=== PATIENT | male | born 1940 | race Caucasian/White ===

== ENCOUNTER 2017-08-27 11:15 | Inpatient (IN) ==
--- NOTE | 2017-08-27 12:25 | XRay Report ---
XR chest 2V Indication: Shortness of breath Comparison: 07 May 2017 Findings: The heart and mediastinum are stable in size and configuration. Pacemaker device is unchanged in position. The pulmonary vascularity appears increased. There is patchy bilateral alveolar densities in both lungs slightly greater on the right. No other lung infiltrates, effusions, pneumothorax or other abnormality is demonstrated. Impression: Increased pulmonary vascularity with bilateral patchy pulmonary densities, may indicate congestive heart failure/pneumonia. PROCEDURE INTERPRETED AT [facility] DEPARTMENT OF RADIOLOGY Final Report Signed by: Dr. Zak Gagnon
[2017-08-27 12:48] LABS: Basophils # 0.1 10*3/uL (0.0-0.2); Basophils % 0.6 % (0.0-0.8); Eosinophils # 0.4 10*3/uL (0.0-0.87); Eosinophils % 3.3 % (0.00-10.9); Hematocrit 40.9 VOL% (42.0-52.0); Immature Granulocytes % 0.8 %; Immature Granulocytes Absolute 0.08 #; Lymphocytes % 8.9 % (21.2-54.2); Mean Corpuscular HGB Conc 34.2 GM/DL (32-36); Mean Corpuscular Hemoglobin 31 PG (27-34); Mean Corpuscular Volume 89.7 FL (87-102); Mean Platelet Volume 9.5 FL (9.6-12.0); Monocytes # 0.7 10*3/uL (0.11-0.8); Monocytes % 6.4 % (1.7-12.7); Neutrophils # 8.5 10*3/uL (1.4-7.4); Platelet Count 332 T/CUMM (130-400); Red Blood Count 4.56 MC/CUMM (3.8-5.5); Red Cell Distribution Width 12.9 % (9.3-17.3); White Blood Count 10.6 T/CUMM (4-12)
[2017-08-27] MEDS ORDERED: LEVOFLOXACIN INJ 750 MG in PREMIX 1 EACH IV STA (12:52)
[2017-08-27] MEDS ORDERED: MORPHINE 2 MG/1 ML SYRINGE IV PRN (13:02)
[2017-08-27] MEDS ORDERED: ACETAMINOPHEN 325 MG TABLET PO PRN (13:02)
[2017-08-27] MEDS ORDERED: ONDANSETRON 4 MG/2 ML VIAL IV PRN (13:02)
[2017-08-27] MEDS ORDERED: ALBUTEROL 2.5 MG/3 ML NEB RESP TX PRN (13:05)
--- NOTE | 2017-08-27 13:13 | Emergency Department Note ---
IDaniel Gwan, am scribing for, and in the presence of, Edy Curran MD 12 :03. Magdy Bliss Doug C, MD, personally performed the services described in this documentation, ascribed by Karla Sanchez in my presence, and it is both accurate and complete 241 . Arrival - Arrival Chief Complaint: Shortness of Breath Stated Complaint: SOB, LOW OXYGEN LEVEL ED Nursing Triage Note: PT C/O SHORTNESS OF BREATH SINCE TUESDAY. PT SAW DR PLASENCIA TUESDAY AND PUT ON ANTIBIOTICS AND TOLD HE HAD FLUID ON LUNGS. REPORTS OXYGEN SAT 88% AT HOME. TEMP 100.3 THIS AM Mode of Arrival: Ambulatory Limitations: No Limitations Source: Patient, Significant other ( ), Old Records Reviewed, RN Notes Reviewed Time Seen by Provider: 08/27/17 11:52 - History of Present Illness HPI Narrative: Patient 76-year-old white male presents emergency room complaining of persistent shortness of breath for the past 2 weeks. Patient states she has had a productive cough and low-grade fever throughout the duration of this illness and states his temperature willem as high as 101. Saw his regular physician was placed on antibiotics without any apparent benefit. He denies any chest pain, neck pain, back or shoulder discomfort. He has not had any hemoptysis or wheezing. Patient does have a history of atrial fibrillation states he recently stopped amiodarone. Onset (ago): week(s) Consistency: constant Severity: moderate Allergies/Adverse Reactions: Allergies Allergy/AdvReac Type Severity Reaction Status Date / Time diazepam AdvReac Intermediate Hallucinati Verified 08/27/17 11:24 ng Home Medications: Home Medications Medication Instructions Recorded Confirmed Type Cyanocobalamin (Vitamin B-12) 2,500 mcg SL BEDTIME 10/09/15 08/27/17 History [Vitamin B-12] Furosemide 20 mg PO DAILY 10/09/15 08/27/17 History [place]-3S/Dha/Epa/Fish Oil [Fish 2 each PO DAILY 10/09/15 08/27/17 History Oil 1,200 mg Softgel] diphenhydrAMINE CAP [Benadryl Cap] 25 mg PO BEDTIME 10/09/15 08/27/17 History Amiodarone Tab [Cordarone Tab] 200 mg PO DAILY 02/15/17 08/27/17 History Escitalopram [Lexapro] 10 mg PO BEDTIME 02/15/17 08/27/17 History Losartan Potassium 100 mg PO DAILY 02/15/17 08/27/17 History Potassium Gluconate 2 tablet PO DAILY 02/15/17 08/27/17 History Rivaroxaban [Xarelto] 20 mg PO BEDTIME 02/15/17 08/27/17 History Terazosin HCl 2 mg PO BEDTIME 02/15/17 08/27/17 History Mv-Min/FA/Vit K/Lycop/Lut/Zeax 1 each PO DAILY 04/09/17 08/27/17 History [Ocuvite Eye + Multi Tablet] Ascorbic Acid [Vitamin C] 1,000 mg PO DAILY 05/06/17 08/27/17 History Cefdinir [Cefdinir] 300 mg PO [id number] 08/27/17 08/27/17 History Tiotropium Cal[place] [Spiriva 2 puffs INH BEDTIME 08/27/17 08/27/17 History Respimat] Review of System - Review of System 12 point system: reviewed and no additional remarkable complaints except as stated - Review of System Constitutional: Present: as per HPI, fever. Absent: chills Respiratory: Present: as per HPI, cough (with green sputum ), other (shortness of breathe ) Cardiovascular: Absent: chest pain, palpitations Medical,Surgical,& Family Hx - Medical History Cardio: History of: Cardiac Dysrhythmia (AFIB), Hypertension Neurology: History of: Seizures Genitourinary: History of: Kidney Stones, Prostate Problems (BPH) - Family History Family History: Reports;: Family Heart Disease - Social History Smoking Status: Unknown if ever smoked Frequency of Alcohol Use: None Type of Drug Use: None Exam Vital Signs: Vital Signs Temperature 97.8 F 08/27/17 12:00 Pulse Rate 82 08/27/17 12:00 Respiratory Rate 21 08/27/17 12:00 Blood Pressure 147/106 08/27/17 12:00 O2 Sat by Pulse Oximetry 90 L 08/27/17 12:00 - General General appearance: alert, in no apparent distress - Head Head exam: Present: atraumatic, normocephalic - Eye Eye exam: Present: normal appearance, PERRL, EOMI - ENT ENT exam: Present: normal oropharynx, mucous membranes moist, TM's normal bilaterally, normal external ear exam - Neck Neck exam: Present: full ROM, trachea midline. Absent: tenderness - Chest Chest inspection: Present: symmetric chest wall rise. Absent: tenderness - Respiratory Respiratory exam: Present: normal lung sounds bilaterally. Absent: respiratory distress - Cardiovascular Cardiovascular exam: Present: regular rate, irregular rhythm - Abdominal Exam Abdominal exam: Present: soft, normal bowel sounds. Absent: distention, tenderness - Extremities Exam Extremities exam: Present: full ROM. Absent: tenderness - Back Exam Back exam: Present: full ROM. Absent: tenderness - Neurological Exam Neurological exam: Present: alert, oriented X3, CN II-XII intact. Absent: motor sensory deficit - Psychiatric Psychiatric exam: Present: normal affect, normal mood - Skin Skin exam: Present: warm, dry, intact, normal color Course Course Narrative: Patient's radiographic and laboratory findings were discussed with him and his . It is my opinion that he needed to be admitted to the hospital and he is agreeable to this. Dr. Cristhian Montejo will be consulted. Results - Labs CBC & BMP: 08/27/17 12:33 Lab Results: I have reviewed the patients labs Labs: Laboratory Tests 08/27/17 12:33 WBC 10.6 RBC 4.56 Hgb 14.0 Hct 40.9 L Plt Count 332 MPV 9.5 L Neut % (Auto) 80.0 H Lymph % (Auto) 8.9 L Neut # (Auto) 8.5 H Lymph # (Auto) 1.0 L - EKG EKG results: interpreted by ERMD - Impressions 83 bpm with paced rhythm - Diagnostic Findings Procedure: Chest x-ray: report reviewed by me (Increased pulmonary vascularity with bilateral patchy pulmonary densities, may indicate conagestive heart failure/pneumonia.) Disposition Clinical Impression: Interstitial pneumonia Case discussed with: patient Disposition: Still a Patient Condition: Guarded Time of Disposition: 13:12
[2017-08-27 13:18] LABS: Alanine Aminotransferase 23 U/L (16-61); Albumin 2.8 G/DL (3.4-5.0); Alkaline Phosphatase 95 U/L (45-117); Aspartate Amino Transferase 14 U/L (0-37); Blood Urea Nitrogen 12 MG/DL (7-18); Calcium 8.9 MG/DL (8.5-10.1); Glucose 82 MG/DL (74-106); Osmolality,Calculated 275.5 MOS/KG (273-304); Potassium 3.8 MMOL/L (3.5-5.1); Sodium 139 MMOL/L (136-145); Total Protein 6.8 G/DL (6.4-8.3); Troponin I Only < 0.015 NG/ML (0.00-0.045)
[2017-08-27] MEDS ORDERED: ENOXAPARIN 40 MG/0.4 ML SYRINGE SUBCUT SCH (13:30)
[2017-08-27] MEDS ORDERED: LEVOFLOXACIN INJ 150 ML IV ONE (13:41)
[2017-08-27 14:07] LABS: Apearance,Urine CLEAR (Clear); Bilirubin,Urine Negative (Negative); Blood, Urine Negative (Negative); Glucose,Urine (UA) Negative (Negative); Ketones,Urine Negative (Negative); Nitrite,Urine Negative (Negative); Protein,Urine Negative; Urine Color Straw (Yellow); Urine Specific Gravity 1.002 (1.001-1.035); Urine Urobilinogen < 2.0 EU/DL (0.2-1.0); WBC,Urine <1 /HPF (0-6)
[2017-08-27] MEDS ORDERED: IPRATROPIUM 500 MCG/2.5 ML NEB RESP TX SCH (15:00)
[2017-08-27] MEDS: methylPREDNISolone SOD SUC 40 MG/1 ML VIAL IV SCH (15:24)
[2017-08-27] MEDS: SODIUM CHLORIDE 0.45% 1,000 ML IV SCH (15:24)
[2017-08-27] MEDS: ALBUTEROL 2.5 MG/3 ML NEB RESP TX SCH (19:34)
[2017-08-27] MEDS: CYANOCOBALAMIN 500 MCG TABLET PO SCH (21:04)
[2017-08-27] MEDS: ESCITALOPRAM 10 MG TABLET PO SCH (21:04)
[2017-08-27] MEDS: diphenhydrAMINE CAP 25 MG CAPSULE PO SCH (21:04)
[2017-08-27] MEDS: DOCUSATE SODIUM 100 MG CAPSULE PO SCH (21:04)
[2017-08-27] MEDS: TERAZOSIN 2 MG CAPSULE PO SCH (21:05)
[2017-08-28] MEDS: methylPREDNISolone SOD SUC 40 MG/1 ML VIAL IV SCH ×4 (00:02→22:44)
[2017-08-28] MEDS: ALBUTEROL 2.5 MG/3 ML NEB RESP TX SCH ×4 (00:41→19:28)
[2017-08-28 06:44] LABS: Basophils % 0.2 % (0.0-0.8); Hematocrit 38.9 VOL% (42.0-52.0); Hemoglobin 13.2 GM/DL (14.0-18.0); Immature Granulocytes Absolute 0.11 #; Lymphocytes # 0.7 10*3/uL (1.4-4.0); Lymphocytes % 5.9 % (21.2-54.2); Mean Corpuscular HGB Conc 33.9 GM/DL (32-36); Mean Corpuscular Hemoglobin 31 PG (27-34); Monocytes # 0.1 10*3/uL (0.11-0.8); Monocytes % 0.6 % (1.7-12.7); Neutrophils # 10.1 10*3/uL (1.4-7.4); Neutrophils % 92.3 % (38.7-73.9); Platelet Count 341 T/CUMM (130-400); Red Blood Count 4.32 MC/CUMM (3.8-5.5); Red Cell Distribution Width 12.6 % (9.3-17.3)
[2017-08-28 07:18] LABS: Osmolality,Calculated 286.1 MOS/KG (273-304)
[2017-08-28 07:42] LABS: Band Neutrophils 2 % (0-10); Burr Cells Slight; Hypochromasia Slight; Lymphocytes 2 % (20-55); Platelet Estimate Adequate; Segmented Neutrophils 92 % (50-85); Total Cells Counted 100
--- NOTE | 2017-08-28 07:42 | Family Practice History&Phys ---
Assessment and Plan (1) Interstitial pneumonia Status: Acute Assessment and plan: 08/28/2017: Patient was placed on IV antibiotic therapy, bronchodilator therapy and steroids. Dr. Cristhian Mcnair has been consulted. His amiodarone has been halted. Current Visit: Yes History of Present Illness Chief complaint: Shortness of breath History of present illness: Mr. Bowers is a 76 year old male Patient 76-year-old white male presented emergency room day for admission with increasing shortness of breath. Patient states it has been going on for several weeks and been seen in the office early last week and advised to come in the hospital which he refused. He has been on antibiotic therapy but states she is just not improving. He has had a low-grade fever associated with this. He is also had some sputum production. Chest x-ray in the emergency room showed diffuse interstitial infiltrates bilaterally suspicious for amiodarone toxicity versus an atypical pneumonia. Patient was admitted for further evaluation. Patient was noted to be hypoxic in the emergency room requiring 4 L of oxygen to maintain O2 sat of 90%. Patient denies any chest pain associated with this except when he coughs. He is not having neck, shoulder or arm discomfort. Dr. Cristhian Montejo has been consulted. Home Medications Medication Instructions Recorded Confirmed Type Furosemide 20 mg PO DAILY 10/09/15 08/27/17 History Amiodarone Tab [Cordarone Tab] 200 mg PO DAILY 02/15/17 08/27/17 History Escitalopram [Lexapro] 10 mg PO BEDTIME 02/15/17 08/27/17 History Losartan Potassium 100 mg PO DAILY 02/15/17 08/27/17 History Rivaroxaban [Xarelto] 20 mg PO BEDTIME 02/15/17 08/27/17 History Terazosin HCl 2 mg PO BEDTIME 02/15/17 08/27/17 History Cefdinir [Cefdinir] 300 mg PO [id number] 08/27/17 08/27/17 History Tiotropium [place] [Spiriva 2 puffs INH BEDTIME 08/27/17 08/27/17 History Respimat] Allergies Allergy/AdvReac Type Severity Reaction Status Date / Time diazepam AdvReac Intermediate Hallucinati Verified 08/27/17 11:24 ng - Constitutional Constitutional: Present: fatigue, fever(s), weakness. Absent: chills - EENT Eyes: Absent: blurry vision, loss of vision Ears: Absent: decreased hearing, ear pain Nose, mouth and throat: Absent: hoarseness, nasal congestion, sinus pressure, sore throat - Cardiovascular Cardiovascular: Present: dyspnea, dyspnea on exertion. Absent: chest pain at rest, orthopnea, palpitations, PND - Respiratory Respiratory: Present: as per HPI, cough, dyspnea, dyspnea on exertion, wheezing - Gastrointestinal Gastrointestinal: Absent: abdominal pain, diarrhea, dyspepsia, dysphagia, nausea , vomiting - Genitourinary Genitourinary: Absent: dysuria, hematuria, urinary frequency - Musculoskeletal Musculoskeletal: Absent: arthralgias, back pain, joint swelling - Neurological Neurological: Absent: confusion, focal weakness, numbness, paresthesias - Psychiatric Psychiatric: Absent: anxiety, depression - Endocrine Endocrine: Present: fatigue. Absent: polydipsia, polyphagia - Hematologic/Lymphatic Hematologic/Lymphatic: Absent: easy bleeding, easy bruising Medical,Surgical,& Family Hx - Medical History Cardio: History of: Cardiac Dysrhythmia (AFIB), Hypertension Neurology: History of: Seizures Genitourinary: History of: Kidney Stones, Prostate Problems (BPH) - Surgical History Surgical History: noncontributory - Family History Family History: Reports;: Family Heart Disease - Social History Smoking Status: Unknown if ever smoked Frequency of Alcohol Use: None Type of Drug Use: None Exam - Constitutional Vitals: Period Temp Pulse Resp BP Sys/Leone Pulse Ox Last 24 Hr 97.8 F-98.5 F 66-106 16-23 90-151/63-106 87-99 Exam: General: Objective patient is a well-developed white male who is dyspneic at rest. Patient states he feels much more comfortable since starting the oxygen. He is able to give an excellent history HEENT: Pupils equal and reactive to light. Patent nares and airway Neck: No meningismus, adenopathy, thyromegaly. There are no auscultated carotid bruits. Cardiovascular: Regular rhythm. No murmurs or gallops Chest: Patient has scattered rales and rhonchi bilaterally. He is noted to have scattered wheeze on expiration. Abdomen: Soft nontender to palpation No masses, rebound, guarding or tenderness. Neuro: Cranial nerves intact and DTRs and strength symmetric in all extremities. Dermatologic: No evidence of abnormal lesions or masses. There is no unusual rash. Musculoskeletal: There is no joint swelling or tenderness or deformity. Extremities: There is no calf swelling or tenderness. Results - Labs CBC & BMP: 08/28/17 05:12 08/28/17 05:12 Lab Results: I have reviewed the past 24 hour labs - Diagnostic Findings Procedure: Chest x-ray: report reviewed by me (Bilateral interstitial infiltrates)
[2017-08-28] MEDS: DOCUSATE SODIUM 100 MG CAPSULE PO SCH ×2 (08:44→20:54)
[2017-08-28] MEDS: RIVAROXABAN 20 MG TABLET PO SCH (08:44)
[2017-08-28] MEDS: LOSARTAN 50 MG TABLET PO SCH (08:45)
[2017-08-28] MEDS: MULTIVITAMIN (OCUVITE) TABLET PO SCH (08:46)
[2017-08-28] MEDS: OMEGA 3 ACID ETHYL ESTERS 1 GM CAPSULE PO SCH (08:46)
[2017-08-28] MEDS: LEVOFLOXACIN INJ 500 MG in PREMIX 1 EACH IV SCH (08:46)
[2017-08-28] MEDS: POTASSIUM GLUCONATE 500 MG TABLET PO SCH (08:47)
[2017-08-28] MEDS: ASCORBIC ACID 500 MG TABLET PO SCH (08:47)
[2017-08-28] MEDS: PANTOPRAZOLE 40 MG TABLET PO SCH (08:47)
--- NOTE | 2017-08-28 09:17 | XRay Report ---
XR chest 1V portable Indication: Dyspnea Comparison: 27 August 2017 Findings: The heart and mediastinum are stable in size and configuration. The pulmonary vascularity is increased with bilateral increased interstitial lung density similar to previous. Patchy area pulmonary densities are present similar to previous exam. No other lung infiltrates, effusions, pneumothorax or other abnormality is demonstrated. Impression: No significant change. PROCEDURE INTERPRETED AT [facility] DEPARTMENT OF RADIOLOGY Final Report Signed by: Dr. Zak Gagnon
--- NOTE | 2017-08-28 09:49 | Pulmonology Consult Note ---
History of Present Illness Chief complaint: CLEMENS. Bilateral pneumonia. Amiodarone. History of present illness: Mr. Bowers is a 76 year old white male whom I been asked to see in pulmonary consultation for evaluation and treatment. Patient was seen along with his . This patient says he has had some progressive shortness of breath for 3 or 4 months. He says it late in the day he often has a low-grade temperature which is resolved by the next morning. Occasionally has green or yellow sputum which he thinks comes from his sinuses. He says presently his sputum is clear. There is been no hemoptysis. His dyspnea on exertion has some progress. The patient says she is always had some problems with this lungs dating back to severe shortness of breath at age 8 when he was taken peanuts. 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 He said his dad had a diagnosis of COPD but had never smoked in his life. This patient smoked but quit smoking around 1989. He did not have any pulmonary exposure to toxins during his adult working life. 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 The patient says she has always been told that his lungs were small. He however weight about 113 pounds at age 18-21 and is quite a bit bigger than that now so his lungs do look small on x-ray compared to his body size. He said that her around 2015 he had infection is settled in his chest and it was hard to resolve. This patient's chest x-ray shows bilateral 5 lobes scattered areas of alveolar and interstitial infiltrate that appears to be a systemic type of process. I suspect it will inspector returned materials to be due to amiodarone. He has had a history of atrial fib. His amiodarone was stopped several days ago. He is being followed by cardiology. Patient's history does not suggest reflux with aspiration. Allergies. Diazepam. Home medicines. Lasix 20 mg daily. Amiodarone 200 mg daily. Lexapro 10 mg daily. Losartan 100 mg daily. Xarelto 20 mg daily. Terazosin 2 mg daily.cefdinir. Spiriva Respimat. Past history. Atrial fib. High blood pressure. History of seizures. Kidney stones. BPH. A long history of mild hypoxemia. His has lung problems and has O2 sat Peter and the patient says he usually runs a sat 91. He is episodic shortness of breath since she was a boy. Social history. . 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 Some exposure to asbestos a lot of exposure to farm chemicals. 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 Stop smoking around 1989. Family history. His father had COPD but never smoked. There is a family history of heart disease. Chest x-ray 08/27/2017 and 08/28/2017 are nearly identical. Heart is top normal in size. Both hilar areas are normal. Pulmonary arteries in the upper range of normal. Mediastinum is normal. There is a cardiac pacing device over the right upper anterior chest. There are 5 lobe areas of alveolar filling with associated interstitial edema. These are most prominent in the right and left base but are present everywhere. I see no fluid in the fissures and I see no pleural effusions. These changes were not present on x-rays that were done in April 2017. Microbiology. No studies reported. Lab. Creatinine is 1.0 with a BUN of 14. Electrolytes are normal. Liver function tests are normal. Troponin is normal. Natruretic peptide was normal at 70. C-reactive protein was elevated at 9.22. Erythrocyte sedimentation rate was elevated at 92. D-dimer was 0.7. Total protein was 6.8 albumin was low at 2.8 and globulins were up to 4.0. Admit white count was 10,600 with 80 segs 9 lymphs and 6 monocytes. H&H is 14.0/40.9 with normal indices and normal red blood cell distribution width. Platelets are 332,000 with a low MPV of 9.5. Urinalysis is normal. Physical exam. Vital signs. No fever. Highest recorded temperature is 98.5. Psychiatric. Oriented 3. Intelligent. Neurologic. Cranial nerves are grossly intact. Patient moves all 4 extremities. Gait was not tested and sensory exam was not done. Face. Symmetrical. No edema of the lips or tongue. Neck. Symmetrical. No meningismus. Lymphatics. No submandibular cervical supraclavicular or epitrochlear adenopathy. Chest. Slight large airway wheeze and slight prolongation of expiration. I did not hear Velcro rales. Heart. No gallop. I do not hear murmur. Abdomen. Nontender. Bowel sounds are present. and rectal. Deferred Lower extremities. No significant edema. Slight tenderness over the posterior calves. Arterial. Carotids are fair I hear no bruits. Upper extremity pulses are palpable. Lower extremity pulses are nonpalpable. I see no evidence of ischemia. Venous. Neck and upper extremities are normal slight venous stasis over the lower extremities. The remainder the physical exam is negative. Impression. 1. Subacute/acute onset of worsening dyspnea on exertion and is associated with a 5 lobe alveolar/interstitial infiltrate. This could be any number of causes that include infections and hypersensitivity reactions. I suspect this will inspector returned materials to be amiodarone lung. 2. Mild large airway wheezing. 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 3. History of atrial fib 4. High blood 5. History of hypoxemia with typical O2 sats on room air 91% predating present illness 6. See past history Plan. 1. I agree with your decision to stop amiodarone. 2. I agree with your decision to start Solu-Medrol and I agree with the dose. 3. Singulair 10 mg p.o. daily 4. Complete pulmonary function test with pre-and postbronchodilator spirometry. This is for baseline studies. 5. Room air ABGs. 6. Pro-calcitonin level. If this is negative and makes an infectious etiology unlikely 7. Cold agglutinins 8. Legionella titer 9. Sputum for Gram stain culture sensitivity 10. TSH and free T4. These may be altered secondary to amiodarone 11. Doppler venograms of the lower extremities. Patient has chronic hypoxemia. 12. See orders Home Medications Medication Instructions Recorded Confirmed Type Furosemide 20 mg PO DAILY 10/09/15 08/27/17 History Amiodarone Tab [Cordarone Tab] 200 mg PO DAILY 02/15/17 08/27/17 History Escitalopram [Lexapro] 10 mg PO BEDTIME 02/15/17 08/27/17 History Losartan Potassium 100 mg PO DAILY 02/15/17 08/27/17 History Rivaroxaban [Xarelto] 20 mg PO BEDTIME 02/15/17 08/27/17 History Terazosin HCl 2 mg PO BEDTIME 02/15/17 08/27/17 History Cefdinir [Cefdinir] 300 mg PO [id number] 08/27/17 08/27/17 History Tiotropium [place] [Spiriva 2 puffs INH BEDTIME 08/27/17 08/27/17 History Respimat] Allergies Allergy/AdvReac Type Severity Reaction Status Date / Time diazepam AdvReac Intermediate Hallucinati Verified 08/27/17 11:24 ng Exam (Pulmonay) H&P - Constitutional Vitals: Period Temp Pulse Resp BP Sys/Leone Pulse Ox Last 24 Hr 97.8 F-98.5 F 66-106 16-23 90-151/63-106 87-99 Medical,Surgical,& Family Hx - Medical History Cardio: History of: Cardiac Dysrhythmia (AFIB), Hypertension Neurology: History of: Seizures Genitourinary: History of: Kidney Stones, Prostate Problems (BPH) - Family History Family History: Reports;: Family Heart Disease - Social History Smoking Status: Unknown if ever smoked Frequency of Alcohol Use: None Type of Drug Use: None Results - Labs CBC & BMP: 08/28/17 05:12 08/28/17 05:12
[2017-08-28] MEDS: SODIUM CHLORIDE 0.45% 1,000 ML IV SCH ×2 (10:22→10:27)
[2017-08-28] MEDS: MONTELUKAST 10 MG TABLET PO SCH (10:27)
--- NOTE | 2017-08-28 13:41 | Ultrasound Report ---
Venous Doppler ultrasound bilateral lower extremities Indication: Hypoxia Comparison: None available Findings: No evidence of echogenic, noncompressible thrombus seen in the visualized veins of the extremities. Color Doppler venous waveform pattern is within normal limits. Impression: No evidence of deep venous thrombosis. Ultrasound images stored and captured. PROCEDURE INTERPRETED AT [facility] DEPARTMENT OF RADIOLOGY Final Report Signed by: Dr. Zak Gagnon
--- NOTE | 2017-08-28 16:16 | Cardiology Consult Note ---
Assessment and Plan (1) Atrial fibrillation and flutter Status: Chronic Assessment and plan: This been a chronic recurrent issue tried on multiple antiarrhythmics. Patient is back in atrial fibrillation now. He is off his amiodarone which he needs to be L secondary his lung issues. Current Visit: No (2) Hypertension Status: Chronic Assessment and plan: This is stable at this time will continue present medications and monitor the patient. Current Visit: No (3) Obstructive sleep apnea on CPAP Status: Chronic Assessment and plan: Continue his CPAP. Current Visit: No (4) Sick sinus syndrome due to SA node dysfunction Status: Chronic Assessment and plan: He has has a pacemaker and that helps manage this especially the bradycardia arrhythmic standpoint. Current Visit: No (5) Bradycardia Status: Chronic Assessment and plan: This the reason he has his pacemaker in and secondary to sick sinus syndrome. Current Visit: No (6) Cardiac pacemaker in situ Status: Chronic Assessment and plan: Has a dual-chamber pacemaker but is now ventricular pacing secondary to mode switch from his atrial fibrillation status. Current Visit: No (7) Interstitial pneumonia Status: Acute Assessment and plan: This may actually be secondary to amiodarone. We will continue to monitor and agree that his amiodarone should be left off. Current Visit: Yes (8) Chronic anticoagulation Status: Chronic Assessment and plan: This is for his atrial fibrillation. This should be maintained less than needs to be stopped. Current Visit: Yes History of Present Illness - Data of Consult Patient: known to practice within the last 3 years Consult date: 08/28/17 Requesting Physician: Edy Curran Primary care physician: Sam Guerrero - Consult Narrative Reason for consult: Atrial fibrillation on amiodarone History of present illness: Mr. Bowers is a 76 year old male well-known to me having paroxysmal atrial fibrillation. The patient's been on several medications previously for this. He was placed on amiodarone for this. He also was having bradycardia issues. The patient underwent electrocardioversion to sinus rhythm with this had a significant bradycardia arrhythmias even significant bradycardia with his atrial fibrillation. The patient had recently underwent dual-chamber pacemaker implantation after which she is doing well. The patient states that about 7-8 weeks ago he began having some low-grade fever. He did not seek medical care except for with Dr. Guerrero for period of time. He is placed on antibiotics without improvement. Patient noted he was having some progressive shortness of breath may be a slight dry cough. I believe he saw Dr. Castellanos recently and his amiodarone was stopped. I discussed this with Dr. Guerrero. The patient presented with a little hypoxia low-grade temperature here dyspnea on exertion. His chest x-ray reveals what is a question of amiodarone lung toxicity. His white count is normal his H&H is okay. He has little bit of a left shift. Sed rate is 92. His troponin is nondetectable, his BNP was 70 and repeated 153 which is really nondiagnostic in his situation. TSH is normal. Albumin is 2.8. He denies any chest pain anginal equivalent. Said no syncope near syncope. We will continue to monitor the patient with you while in the hospital. CC: Sam Guerrero, DO - Home Medications and Allergies Home Medications: Home Medications Medication Instructions Recorded Confirmed Type Furosemide 20 mg PO DAILY 10/09/15 08/27/17 History Amiodarone Tab [Cordarone Tab] 200 mg PO DAILY 02/15/17 08/27/17 History Escitalopram [Lexapro] 10 mg PO BEDTIME 02/15/17 08/27/17 History Losartan Potassium 100 mg PO DAILY 02/15/17 08/27/17 History Rivaroxaban [Xarelto] 20 mg PO BEDTIME 02/15/17 08/27/17 History Terazosin HCl 2 mg PO BEDTIME 02/15/17 08/27/17 History Cefdinir [Cefdinir] 300 mg PO ADEX64R 08/27/17 08/27/17 History Tiotropium [place] [Spiriva 2 puffs INH BEDTIME 08/27/17 08/27/17 History Respimat] Allergies/Adverse Reactions: Allergies Allergy/AdvReac Type Severity Reaction Status Date / Time diazepam AdvReac Intermediate Hallucinati Verified 08/27/17 11:24 ng Review of systems: Constitutional: Has had some subjective as well as objective low-grade fevers the last 2 weeks. His weight has been fairly stable. He has had some fatigability probably associated with his dyspnea. Eyes: Denies visual changes or loss of vision Ears: Denies decreased hearing, vertigo Nose, mouth and throat: Denies dysphagia, epistaxis, headaches, neck pain, tongue swelling, Neck: Denies thyromegaly or masses. No stiffness. Cardiovascular: as per HPI Respiratory: Recently with a cough as well as low-grade fever and dyspnea on exertion. This is progressed. He has chronic ASHLEY on CPAP. Gastrointestinal: Denies abdominal pain, constipation, dyspepsia, dysphagia, hematemesis, hematochezia, melena, nausea, vomiting Genitourinary: Denies dysuria, hematuria, nocturia Musculoskeletal: Denies arthralgias, joint swelling, muscle weakness, myalgias Neurological: denies abnormal gait, abnormal speech, confusion, convulsions, frequent falls, headaches, memory loss, syncope Psychiatric: Denies anxiety, confusion, depression Endocrine: Denies cold intolerance,heat intolerance Hematologic/Lymphatic: Denies easy bleeding, easy bruising Dermatologic: Denies Rash, itching, shingles Medical,Surgical,& Family Hx - Medical History Cardio: History of: Cardiac Dysrhythmia (AFIB), Hypertension Neurology: History of: Seizures Genitourinary: History of: Kidney Stones, Prostate Problems (BPH) - Family History Family History: Reports;: Family Heart Disease - Social History Smoking Status: Unknown if ever smoked Frequency of Alcohol Use: None Type of Drug Use: None Marital Status: Lives With:: Spouse Functional capacity: independent ambulation Physical Examination Vital Signs Temp Pulse Resp BP Pulse Ox 97.8 F 82 20 90/68 87 L 08/27/17 11:19 08/27/17 11:19 08/27/17 11:19 08/27/17 11:19 08/27/17 11:19 Exam: General appearance: Over weight, no acute distress Head exam: normal inspection, atraumatic Eye exam: Pupils are equal and reactive. EOMI. There is no trauma. Ear exam: Anatomically normal. Normal auditory acuity to conversation. Oral exam: No significant oral lesions. Neck exam: normal inspection no JVD. No carotid bruit. Trachea is in midline. Respiratory exam: Coarse breath sounds with a few dry crackles. He is obviously distant with minimal exertion. Cardiovascular exam: Irregular rhythm without murmur or gallop or rub. No precordial lift. No bruits over the major arteries. Chest wall/torso: Anatomically normal. No tenderness, deformity Peripheral Pulses: 2+ throughout. GI/Abdominal exam: normal bowel sounds, soft and nontender, no abdominal bruits or pulsatile masses. Musculoskeletal/Extremities exam: normal inspection without edema or cyanosis. No deformities or trauma. Neurological exam: alert, oriented X3. There is no gross neurologic deficits. Psychiatric exam: normal affect, normal mood. Cognitive function is grossly intact. Skin exam: normal color, warm. No rashes or other skin lesions. Result/EKG - Labs CBC & BMP: 08/28/17 05:12 08/28/17 05:12 Lab Results: I have reviewed the past 24 hour labs Labs: Laboratory Results - last 24 hr 08/28/17 08/28/17 08/28/17 05:12 05:12 09:54 WBC 11.0 RBC 4.32 Hgb 13.2 L Hct 38.9 L MCV 90.0 MCH 31 MCHC 33.9 RDW 12.6 Plt Count 341 MPV 10.0 Neut % (Auto) 92.3 H Lymph % (Auto) 5.9 L [place] % (Auto) 0.6 L Eos % (Auto) 0.0 Baso % (Auto) 0.2 Neut # (Auto) 10.1 H Lymph # (Auto) 0.7 L [place] # (Auto) 0.1 L Eos # (Auto) 0.0 Baso # (Auto) 0.0 Total Counted 100 Immature Gran % 1.0 Nucleated RBC % 0.0 Immature Gran # 0.11 Segmented Neutrophils 92 H Band Neutrophils 2 Lymphocytes 2 L Monocytes 4 Nucleated RBCs # 0.00 Platelet Estimate Adequate Immature Plt Fraction 0.0 Hypochromasia Slight Deputy Cells Slight Sodium 142 Potassium 4.0 Chloride 108 H Carbon Dioxide 23 Anion Gap 15.0 BUN 14 Creatinine 1.00 GFR Calculation 99 BUN/Creatinine Ratio 14.00 Glucose 151 H Calculated Osmolality 286.1 Calcium 9.0 B-Natriuretic Peptide 153 H TSH 3rd Generation 08/28/17 09:54 WBC RBC Hgb Hct MCV MCH MCHC RDW Plt Count MPV Neut % (Auto) Lymph % (Auto) [place] % (Auto) Eos % (Auto) Baso % (Auto) Neut # (Auto) Lymph # (Auto) [place] # (Auto) Eos # (Auto) Baso # (Auto) Total Counted Immature Gran % Nucleated RBC % Immature Gran # Segmented Neutrophils Band Neutrophils Lymphocytes Monocytes Nucleated RBCs # Platelet Estimate Immature Plt Fraction Hypochromasia Deputy Cells Sodium Potassium Chloride Carbon Dioxide Anion Gap BUN Creatinine GFR Calculation BUN/Creatinine Ratio Glucose Calculated Osmolality Calcium B-Natriuretic Peptide TSH 3rd Generation 0.789 - Impressions Impressions: Atrial fibrillation with controlled ventricular response.
[2017-08-28] MEDS: TERAZOSIN 2 MG CAPSULE PO SCH (20:54)
[2017-08-28] MEDS: diphenhydrAMINE CAP 25 MG CAPSULE PO SCH (20:54)
[2017-08-28] MEDS: ESCITALOPRAM 10 MG TABLET PO SCH (20:54)
[2017-08-28] MEDS: CYANOCOBALAMIN 500 MCG TABLET PO SCH (20:54)
[2017-08-29] MEDS: ALBUTEROL 2.5 MG/3 ML NEB RESP TX SCH ×4 (00:23→19:23)
[2017-08-29 03:48] LABS: ABG HCO3 22.6 MMOL/L (20-26); ABG PCO2 33.4 MM HG (35-48); ABG PO2 63.6 MM HG (80-95); ABG TCO2 18.9 MMOL/L (23-27); Allen Test Positive; Pt O2 Delivery Device CPAP
[2017-08-29] MEDS: methylPREDNISolone SOD SUC 40 MG/1 ML VIAL IV SCH ×4 (06:00→17:50)
--- NOTE | 2017-08-29 07:46 | XRay Report ---
XR chest 2V Indication: Amiodarone therapy Comparison: One August 2017 Findings: The heart and mediastinum are stable in size and configuration. Pacemaker device is unchanged in position. The pulmonary vascularity is normal in caliber. Lung volumes are increased with prominent bronchial markings. Patchy of lower lung densities are present similar to previous study. Lung infiltrates, effusions, pneumothorax or other abnormality is demonstrated. Impression: No significant change. PROCEDURE INTERPRETED AT [facility] DEPARTMENT OF RADIOLOGY Final Report Signed by: Dr. Zak Gagnon
[2017-08-29] MEDS: POTASSIUM GLUCONATE 500 MG TABLET PO SCH (08:52)
[2017-08-29] MEDS: OMEGA 3 ACID ETHYL ESTERS 1 GM CAPSULE PO SCH (08:52)
[2017-08-29] MEDS: LOSARTAN 50 MG TABLET PO SCH (08:53)
[2017-08-29] MEDS: MONTELUKAST 10 MG TABLET PO SCH (08:53)
[2017-08-29] MEDS: MULTIVITAMIN (OCUVITE) TABLET PO SCH (08:54)
[2017-08-29] MEDS: RIVAROXABAN 20 MG TABLET PO SCH (08:54)
[2017-08-29] MEDS: DOCUSATE SODIUM 100 MG CAPSULE PO SCH ×2 (08:54→20:39)
[2017-08-29] MEDS: PANTOPRAZOLE 40 MG TABLET PO SCH (08:54)
[2017-08-29] MEDS: ASCORBIC ACID 500 MG TABLET PO SCH (08:55)
[2017-08-29] MEDS: LEVOFLOXACIN INJ 500 MG in PREMIX 1 EACH IV SCH (08:57)
--- NOTE | 2017-08-29 11:02 | Cardiology Progress Note ---
<Mishel Edwards E - Last Filed: 08/29/17 10:42> Assessment and Plan - Time spent with patient Time spent with patient: Greater than 30 minutes (1) Atrial fibrillation and flutter Status: Chronic Assessment and plan: SEE PLAN OF CARE LISTED BELOW Current Visit: No (2) Hypertension Status: Chronic Assessment and plan: SEE PLAN OF CARE LISTED BELOW Current Visit: No (3) Obstructive sleep apnea on CPAP Status: Chronic Assessment and plan: SEE PLAN OF CARE LISTED BELOW Current Visit: No (4) Cardiac pacemaker in situ Status: Chronic Assessment and plan: SEE PLAN OF CARE LISTED BELOW Current Visit: No (5) Interstitial pneumonia Status: Acute Assessment and plan: SEE PLAN OF CARE LISTED BELOW Current Visit: Yes (6) Chronic anticoagulation Status: Chronic Assessment and plan: SEE PLAN OF CARE LISTED BELOW Current Visit: Yes Cardiology - PN: Subj Interval history: PROSTHETIC AIDES TEACHER: DR. NAJERA SUMMARY: Mr. Bowers, 76 WM, with risk factors significant for: Hypertension, obesity. History of atrial fibrillation S/P dual-chamber pacemaker insertion. Takes Xarelto for stroke prevention. In the past, patient was placed on numerous antiarrhythmics including Amiodarone for his atrial fibrillation. He is also having bradycardic issues as well. He has undergone five DCCV however, returned to atrial fibrillation eventually. Admitted August 27, 2017 due to progressive shortness of breath, fever and slight dry cough. Cardiac biomarkers negative. He is being treated for possible pneumonia and/or Amiodarone lung. Sputum culture preliminarily negative. AUGUST 28, 2017: Initially, SPO2 saturation 81% on arrival. This morning it is 86%. Denies chest pain, heaviness or tightness. He believes his breathing in general is better but continues to have shortness of breath with exertion. At this time, he remains in atrial fibrillation, controlled rate. I do not see a recent echocardiogram. I reviewed records at [facility] to see when the most recent study was performed. PFTs results are pending today. Blood pressure is adequately controlled. Will further discuss with Dr. Guerrero and await additional recommendations. AUGUST 28, 2017 REVIEW OF SYSTEMS: Cardiovascular: Denies chest pain, heaviness, tightness. Occasionally feels palpitations. Can hear his heartbeat when he moves his left arm above his head Pulmonary: Dry hacking cough. Shortness of breath with exertion though improved. Routinely uses CPAP device. Denies orthopnea. Gastrointestinal: Denies vomiting, nausea, constipation or diarrhea. IMPRESSION/PLAN: 1. SHORTNESS OF BREATH - this point, continues to be treated for possible infectious process, Amiodarone pulmonary toxicity, severe obstructive sleep apnea. 2. ATRIAL FIBRILLATION - currently rate controlled. Patient is not on a alexi blocking agent at this point. 3. HYPERTENSION - patient takes Losartan daily. During the night, systolic blood pressure averaging 150s. However this morning is stable at 111/73. Patient is on a regimen dose of IV steroids at this time. I suspect this is driving up by his blood pressures as well. Will continue to follow along and adjust his meds accordingly 4. OBSTRUCTIVE SLEEP APNEA - compliant with device. Exam (Progress Note) - Constitutional Vitals: Period Temp Pulse Resp BP Sys/Leone Pulse Ox Last 24 Hr 97.4 F-98.4 F 57-98 16-20 114-149/73-93 88-98 Exam: General: [Appears well with no apparent distress.] [Pleasant and cooperative. ] [Appears comfortable.] HEENT: [PERRL, normocephalic, atraumatic. Mucous membranes moist. No jaundice noted. Conjunctiva moist and clear, sclerae anicteric] Neck: Unable to assess for JVD due to habitus. No thyromegaly or lymphadenopathy noted. No carotid bruit appreciated Cardiac: [Irregularly irregular rhythm, controlled rate. No obvious murmur, rub or gallop Lungs: [Clear to auscultation without accessory muscle use to assist the respiratory pattern.] Oxygen in use via nasal cannula. SPO2 86% Abdomen: Soft, bowel sounds normoactive. Nontender, round and nondistended. No abdominal bruit or thrill noted. No masses noted. Musculoskeletal: No fluid collection. Decreased range of motion is noted. Extremities: No clubbing, cyanosis noted. [ No edema noted.] Upper extremity pulses 2+. Lower extremity pulses 2+. Capillary refill less than 3 seconds. Skin: No unusual lesions or rashes. No skin breakdown appreciated. Neuro: Awake, alert and oriented 3. Moves all extremities well without hemiparesis or paralysis. No essential tremor is appreciated. Result/EKG - Labs CBC & BMP: 08/28/17 05:12 08/28/17 05:12 Lab Results: I have reviewed the past 24 hour labs Labs: Laboratory Results - last 24 hr 08/28/17 08/28/17 08/28/17 09:54 09:54 09:54 ABG pH ABG pCO2 ABG pO2 ABG HCO3 ABG Total CO2 ABG O2 Saturation ABG Base Excess FiO2 B-Natriuretic Peptide 153 H TSH 3rd Generation 0.789 Cold Agglutinin Screen 1:2 08/29/17 03:26 ABG pH 7.420 ABG pCO2 33.4 L ABG pO2 63.6 L ABG HCO3 22.6 ABG Total CO2 18.9 L ABG O2 Saturation 92.0 L ABG Base Excess -2.0 FiO2 21.00 B-Natriuretic Peptide TSH 3rd Generation Cold Agglutinin Screen - Diagnostic Findings Procedure: Chest x-ray: report reviewed by me - EKG EKG results: interpreted by me EKG shows: atrial fibrillation <Zoe Guerrero - Last Filed: 08/29/17 15:12> Cardiology - PN: Subj Interval history: I have personally interviewed and evaluated the patient, reviewed the chart and discussed medical decision-making with Practitioner Grace. I have read this note and agree with her documentation here in. Exam (Progress Note) - Constitutional Vitals: Period Temp Pulse Resp BP Sys/Leone Pulse Ox Last 24 Hr 97.4 F-98.4 F 57-98 16-20 114-149/73-93 88-98 Result/EKG - Labs CBC & BMP: 08/28/17 05:12 08/28/17 05:12 Labs: Laboratory Results - last 24 hr 08/28/17 08/29/17 09:54 03:26 ABG pH 7.420 ABG pCO2 33.4 L ABG pO2 63.6 L ABG HCO3 22.6 ABG Total CO2 18.9 L ABG O2 Saturation 92.0 L ABG Base Excess -2.0 FiO2 21.00 Cold Agglutinin Screen 1:2
--- NOTE | 2017-08-29 12:13 | Pulmonology Progress Note ---
Pulmonary - PN: Subj Interval history: Otto Avila, [facility], acting as scribe for Dr. Dayo Montejo Mr. Bowers is a 76-year-old white male who we saw in initial pulmonary consultation 08/28/2017. At that time, our impressions were: 1. Subacute/acute onset of worsening dyspnea on exertion and is associated with a 5 lobe alveolar/interstitial infiltrate. This could be any number of causes that include infections and hypersensitivity reactions. I suspect this will returning officer to be amiodarone lung. 2. Mild large airway wheezing. 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 3. History of atrial fib 4. High blood 5. History of hypoxemia with typical O2 sats on room air 91% predating present illness 6. See past history 08/29/2017. The patient was seen today along with Yessi Julio RN. The patient' s chest x-ray today is slightly improved from previous films. He definitely reports that he is breathing better. Sputum Gram stain from yesterday showed many gram-positive cocci in clusters and moderate gram-negative rods. Sputum culture is only growing normal effie at 12 hours. We are going to repeat sputum culture for Gram stain, culture and sensitivity. 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 During the evenings he has had significant shakiness which we feel is most likely secondary to the Solu -Medrol. We are going to decrease his dose to 40 mg IV every 8 hours and follow -up his response. We will repeat a chest x-ray tomorrow. We are also going to repeat a sed rate and C-reactive protein. Note, at admission these were markedly elevated at 92 and 9.22, respectively. Cold agglutinins are negative at 1:2. Legionella and pro-calcitonin are both pending. Doppler venograms done 08/28/2017 showed no evidence of DVT in either lower extremity. ABGs this morning on an FiO2 of 21% showed a pH of 7.420, PCO2 33.4, PO2 63.6, bicarb 22.6, and oxygen saturation 92.0%. Medications have been reviewed. Solu-Medrol decreased as above. Labs been reviewed. No other new labs were drawn today. Exam (Progress Note) - Constitutional Vitals: Period Temp Pulse Resp BP Sys/Leone Pulse Ox Last 24 Hr 97.4 F-98.4 F 57-98 16-20 114-149/73-93 88-98 Exam: Chest with slight prolongation of expiration and minimal large airway wheeze Heart no gallop Abdomen is obese, but nontender and nondistended; bowel sounds are positive 4 Lower extremities with nothing to suggest acute deep venous thrombophlebitis Psychiatric oriented 3; appreciative of his care Neurologic long-term motor function is intact Plan: Decrease Solu-Medrol to 40 mg IV every 8 hours. Repeat chest x-ray, sed rate, C-reactive protein in the morning. Repeat sputum for Gram stain, culture and sensitivity. See orders. Results - Labs CBC & BMP: 08/28/17 05:12 08/28/17 05:12
--- NOTE | 2017-08-29 18:11 | Family Practice Progress Note ---
Family Practice - PN: Subj Interval history: Patient seen this morning. He was breathing some better on 2 L of nasal cannula. Oxygen sats about 91-92%. In no acute respiratory distress. I did note pulmonary's note and there are some studies pending at this time. He is in good spirits. We are continuing current antibiotics of Levaquin and obviously holding amiodarone at this time. Appreciate specialty assistance on this case and will follow along very closely. Monitoring labs at this time Exam (Progress Note) - Constitutional Vitals: Period Temp Pulse Resp BP Sys/Leone Pulse Ox Last 24 Hr 97.4 F-98.4 F 57-98 16-20 114-149/70-93 88-98 Exam: Generally stable hemodynamically. Please see lab HEENT neck is supple trachea midline Cardiovascular rate is irregular. There is no gallop or rub Lungs a few basal rales but I do not appreciate any wheezing or rhonchi at this time. Abdomen soft nondistended, patient is eating well with good bowel and bladder function Extremities no clubbing cyanosis or edema Results - Labs CBC & BMP: 08/28/17 05:12 08/28/17 05:12 Assessment and Plan (1) Amiodarone pulmonary toxicity Status: Acute Assessment and plan: 09-13: This medication has been stopped Current Visit: Yes (2) Atrial fibrillation and flutter Status: Chronic Assessment and plan: : This is chronic the patient is stable at this time. No chest pain Current Visit: No
[2017-08-29] MEDS: TERAZOSIN 2 MG CAPSULE PO SCH (20:39)
[2017-08-29] MEDS: CYANOCOBALAMIN 500 MCG TABLET PO SCH (20:39)
[2017-08-29] MEDS: diphenhydrAMINE CAP 25 MG CAPSULE PO SCH (20:39)
[2017-08-29] MEDS: ESCITALOPRAM 10 MG TABLET PO SCH (20:39)
[2017-08-30] MEDS: ALBUTEROL 2.5 MG/3 ML NEB RESP TX SCH ×2 (00:14→08:35)
[2017-08-30] MEDS: SODIUM CHLORIDE 0.45% 1,000 ML IV SCH ×2 (02:42→22:20)
[2017-08-30] MEDS: methylPREDNISolone SOD SUC 40 MG/1 ML VIAL IV SCH ×3 (02:43→17:50)
[2017-08-30 07:44] LABS: Basophils # 0.1 10*3/uL (0.0-0.2); Basophils % 0.2 % (0.0-0.8); Hematocrit 38.8 VOL% (42.0-52.0); Hemoglobin 12.9 GM/DL (14.0-18.0); Immature Granulocytes % 1.9 %; Lymphocytes # 0.8 10*3/uL (1.4-4.0); Lymphocytes % 3.6 % (21.2-54.2); Mean Corpuscular HGB Conc 33.2 GM/DL (32-36); Mean Corpuscular Hemoglobin 30 PG (27-34); Mean Corpuscular Volume 91.5 FL (87-102); Mean Platelet Volume 9.6 FL (9.6-12.0); Monocytes # 0.5 10*3/uL (0.11-0.8); Monocytes % 2.2 % (1.7-12.7); Neutrophils # 19.4 10*3/uL (1.4-7.4); Neutrophils % 92.1 % (38.7-73.9); Platelet Count 325 T/CUMM (130-400); Red Blood Count 4.24 MC/CUMM (3.8-5.5); White Blood Count 21.1 T/CUMM (4-12)
--- NOTE | 2017-08-30 07:53 | XRay Report ---
XR chest 2V Indication: Amiodarone therapy Comparison: 2August 2017 Findings: The heart and mediastinum are stable in size and configuration. In Pacemaker device is unchanged in position. The pulmonary vascularity is prominent similar to previous exam. Bilateral pulmonary densities and prominent bronchial markings are present similar to previous study. No other lung infiltrates, effusions, pneumothorax or other abnormality is demonstrated. Impression: No significant changes. PROCEDURE INTERPRETED AT [facility] DEPARTMENT OF RADIOLOGY Final Report Signed by: Dr. Zak Gagnon
[2017-08-30] MEDS: POTASSIUM GLUCONATE 500 MG TABLET PO SCH (08:03)
[2017-08-30] MEDS: ASCORBIC ACID 500 MG TABLET PO SCH (08:03)
[2017-08-30] MEDS: LOSARTAN 50 MG TABLET PO SCH (08:03)
[2017-08-30] MEDS: OMEGA 3 ACID ETHYL ESTERS 1 GM CAPSULE PO SCH (08:04)
[2017-08-30] MEDS: MONTELUKAST 10 MG TABLET PO SCH (08:04)
[2017-08-30] MEDS: PANTOPRAZOLE 40 MG TABLET PO SCH (08:04)
[2017-08-30] MEDS: DOCUSATE SODIUM 100 MG CAPSULE PO SCH ×2 (08:04→21:15)
[2017-08-30] MEDS: LEVOFLOXACIN INJ 500 MG in PREMIX 1 EACH IV SCH (08:04)
[2017-08-30] MEDS: MULTIVITAMIN (OCUVITE) TABLET PO SCH (08:04)
[2017-08-30] MEDS: RIVAROXABAN 20 MG TABLET PO SCH (08:04)
[2017-08-30 08:12] LABS: Calcium 8.7 MG/DL (8.5-10.1); Magnesium 2.2 MG/DL (1.8-2.4); Osmolality,Calculated 285.1 MOS/KG (273-304); Potassium 4.4 MMOL/L (3.5-5.1); Risk Ratio 3.56; VLDL CHOLESTEROL 13.4 MG/DL
[2017-08-30 08:19] LABS: Band Neutrophils 1 % (0-10); Hypochromasia 1+; Lymphocytes 5 % (20-55); Microcytosis 1+; Segmented Neutrophils 91 % (50-85); Total Cells Counted 100
[2017-08-30 08:20] LABS: Platelet Estimate Normal
--- NOTE | 2017-08-30 09:03 | Family Practice Progress Note ---
Family Practice - PN: Subj Interval history: Patient seen this morning. He was breathing some better on 2 L of nasal cannula. Oxygen sats about 91-92%. In no acute respiratory distress. I did note pulmonary's note and there are some studies pending at this time. He is in good spirits. We are continuing current antibiotics of Levaquin and obviously holding amiodarone at this time. Appreciate specialty assistance on this case and will follow along very closely. Monitoring labs at this time 08/30/2017: Patient seen this morning and states he feels significantly better, breathing easier. At present eating all of his breakfast and states that it was "good". Denies any significant shortness of breath at present. Is off his oxygen currently, while eating. I do not appreciate any wheezing rales or rhonchi. His chest x-ray remained unchanged. He does have an elevation of white count presumably at least in part due to steroids. He is not running a fever and his weight is unchanged. We will continue to monitor along with pulmonary at this time. Appreciate their assistance Exam (Progress Note) - Constitutional Vitals: Period Temp Pulse Resp BP Sys/Leone Pulse Ox Last 24 Hr 97.5 F-98.6 F 68-95 16-22 118-146/56-93 88-100 Exam: Generally stable hemodynamically. Please see lab HEENT neck is supple trachea midline Cardiovascular rate is irregular. There is no gallop or rub Lungs no appreciated wheezing or rhonchi at this time. Abdomen soft nondistended, patient is eating well with good bowel and bladder function Extremities no clubbing cyanosis or edema Results - Labs CBC & BMP: 08/30/17 06:27 08/30/17 06:27 Assessment and Plan (1) Amiodarone pulmonary toxicity Status: Acute Assessment and plan: 09-13: This medication has been stopped Current Visit: Yes (2) Atrial fibrillation and flutter Status: Chronic Assessment and plan: : This is chronic the patient is stable at this time. No chest pain Current Visit: No
[2017-08-30] MEDS ORDERED: ALBUTEROL/IPRATROPIUM 3 ML NEB RESP TX PRN (11:28)
--- NOTE | 2017-08-30 12:24 | Pulmonology Progress Note ---
Pulmonary - PN: Subj Interval history: Otto Avila, [facility]-, acting as scribe for Dr. Dayo Montejo Mr. Bowers is a 76-year-old white male who we saw in initial pulmonary consultation 08/28/2017. At that time, our impressions were: 1. Subacute/acute onset of worsening dyspnea on exertion and is associated with a 5 lobe alveolar/interstitial infiltrate. This could be any number of causes that include infections and hypersensitivity reactions. 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 2. Mild large airway wheezing. 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 3. History of atrial fib 4. High blood 5. History of hypoxemia with typical O2 sats on room air 91% predating present illness 6. See past history 08/29/2017. The patient was seen today along with Yessi Julio RN. The patient' s chest x-ray today is slightly improved from previous films. He definitely reports that he is breathing better. Sputum Gram stain from yesterday showed many gram-positive cocci in clusters and moderate gram-negative rods. Sputum culture is only growing normal effie at 12 hours. We are going to repeat sputum culture for Gram stain, culture and sensitivity. 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 During the evenings he has had significant shakiness which we feel is most likely secondary to the Solu -Medrol. We are going to decrease his dose to 40 mg IV every 8 hours and follow -up his response. We will repeat a chest x-ray tomorrow. We are also going to repeat a sed rate and C-reactive protein. Note, at admission these were markedly elevated at 92 and 9.22, respectively. Cold agglutinins are negative at 1:2. Legionella and pro-calcitonin are both pending. Doppler venograms done 08/28/2017 showed no evidence of DVT in either lower extremity. ABGs this morning on an FiO2 of 21% showed a pH of 7.420, PCO2 33.4, PO2 63.6, bicarb 22.6, and oxygen saturation 92.0%. Medications have been reviewed. Solu-Medrol decreased as above. Labs been reviewed. No other new labs were drawn today. 08/30/2017. The patient was seen today along with his , female friend, and Yessi Julio RN. Mr. Bowers continues to report improving respiratory status. Chest x-ray today continues to show improvement of his 5 lobe alveolar/ interstitial infiltrate. Sed rate has fallen to 51 and C-reactive protein is fallen to 2.17. We will repeat both of these tomorrow. Pulmonary function tests showed small airways disease with reversible component. Forced vital capacity was 75% of predicted consistent with mild restrictive disease. We suspect that his baseline is approximately 90% of predicted. We have started the patient on duo nebs 4 times daily and as needed. He is already on Singulair which needs to be continued. Tomorrow, we are going to repeat room air blood gases to see if his oxygenation has improved. The patient asked about his elevated white count. We feel that this is almost certainly secondary to the steroids that have been necessary. Medications have been reviewed. We made no changes today other than the addition of DuoNeb's. Labs have been reviewed. White count is 21,100 with 92.1% segs; H&H 12.9/38.8; platelet count 325,000; sed rate 51; C-reactive protein 2.17; creatinine 0.90, BUN 19, electrolytes are normal; fasting lipoprotein profile shows a total cholesterol 146, LDL 100, HDL 41, triglycerides 67 Exam (Progress Note) - Constitutional Vitals: Period Temp Pulse Resp BP Sys/Leone Pulse Ox Last 24 Hr 97.5 F-98.6 F 68-95 16-22 118-129/56-89 89-100 Exam: Chest with slight prolongation of expiration and minimal large airway wheeze Heart no gallop Abdomen is obese, but nontender and nondistended; bowel sounds are positive 4 Lower extremities with nothing to suggest acute deep venous thrombophlebitis Psychiatric oriented 3; appreciative of his care Neurologic long-term motor function is intact Plan: Continue present treatment. Start duo nebs 4 times daily and as needed. Tomorrow, recheck sed rate, C-reactive protein, room air ABGs, and chest x-ray. See orders. Results - Labs CBC & BMP: 08/30/17 06:27 08/30/17 06:27
[2017-08-30] MEDS: ALBUTEROL/IPRATROPIUM 3 ML NEB RESP TX SCH ×2 (13:11→20:18)
--- NOTE | 2017-08-30 14:29 | Cardiology Progress Note ---
Assessment and Plan - Time spent with patient Time spent with patient: Greater than 30 minutes (1) Atrial fibrillation and flutter Status: Chronic Assessment and plan: SEE PLAN OF CARE LISTED BELOW Current Visit: No (2) Hypertension Status: Chronic Assessment and plan: SEE PLAN OF CARE LISTED BELOW Current Visit: No (3) Obstructive sleep apnea on CPAP Status: Chronic Assessment and plan: SEE PLAN OF CARE LISTED BELOW Current Visit: No (4) Cardiac pacemaker in situ Status: Chronic Assessment and plan: SEE PLAN OF CARE LISTED BELOW Current Visit: No (5) Interstitial pneumonia Status: Acute Assessment and plan: SEE PLAN OF CARE LISTED BELOW Current Visit: Yes (6) Chronic anticoagulation Status: Chronic Assessment and plan: SEE PLAN OF CARE LISTED BELOW Current Visit: Yes Cardiology - PN: Subj 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 Bowers, 76 WM, with risk factors significant for: hypertension, obesity. History of atrial fibrillation S/P dual-chamber pacemaker insertion. Takes Xarelto for stroke prevention. In the past, patient was placed on numerous antiarrhythmics including Amiodarone for his paroxysmal atrial fibrillation. He has also having bradycardic issues as well. He has undergone five DCCVs however, returned to atrial fibrillation eventually. Admitted August 27, 2017 due to progressive shortness of breath, fever and slight dry cough. Cardiac biomarkers negative. He is being treated for possible pneumonia and/or Amiodarone lung. Sputum culture negative. PFTs revealed small airway disease with reversible component. Amiodorone has been discontinued and heart rate is controlled. AUGUST 30, 2017: Patient is followed for chronic, stable conditions to include hypertension, paroxysmal atrial fibrillation, obstructive sleep apnea. More acutely, patient is being followed for possible pneumonia and/or Amiodarone pulmonary toxicity, shortness of breath. SPO2 saturation 93%. Denies chest pain, heaviness or tightness. Shortness of breath has improved yet still has shortness of breath with exertion. Continues to have paroxysms of atrial fibrillation, rate controlled. Vital signs are stable. White blood cell count 21K however suspect this is most likely related to use of steroids. Continue Xarelto for stroke prevention, Losartan. Should the patient began to have paroxysms of faster heart rates may consider a beta-zeenat. Given his wheezing we will avoid for now. Because there is not a recent outpatient echocardiogram, will arrange for a study outpatient at discharge. Will further discuss with Dr. Guerrero and await additional recommendations. AUGUST 30, 2017 REVIEW OF SYSTEMS: Cardiovascular: Denies chest pain, heaviness, tightness. Occasionally feels palpitations, worse with exertion. Pulmonary: Dry hacking cough has slightly improved. Shortness of breath with exertion, also improved. Routinely uses CPAP device. Denies PND Gastrointestinal: Denies vomiting, nausea, constipation or diarrhea. IMPRESSION/PLAN: 1. SHORTNESS OF BREATH - multifactorial to include possible CAP, Amiodarone pulmonary toxicity, severe obstructive sleep apnea. This is improving. 2. ATRIAL FIBRILLATION - currently rate controlled. Patient is not on a alexi blocking agent at this point. Continue Xarelto for stroke prevention 3. HYPERTENSION - patient takes Losartan daily. No need to adjust blood pressure medications at this point. She patient began to express tachycardic rates, may consider alexi blocking agents such as a beta-zeenat but will monitor closely for wheezing. 4. OBSTRUCTIVE SLEEP APNEA - compliant with device. Exam (Progress Note) - Constitutional Vitals: Period Temp Pulse Resp BP Sys/Leone Pulse Ox Last 24 Hr 97.5 F-98.6 F 68-95 16-22 118-149/56-92 89-100 Exam: General: [Appears well with no apparent distress.] [Pleasant and cooperative. ] [Appears comfortable.] HEENT: [PERRL, normocephalic, atraumatic. Mucous membranes moist. No jaundice noted. Conjunctiva moist and clear, sclerae anicteric] Neck: Unable to assess for JVD due to habitus. No thyromegaly or lymphadenopathy noted. No carotid bruit appreciated Cardiac: [Irregularly irregular rhythm, controlled rate. No obvious murmur, rub or gallop Lungs: [relatively clear auscultation without accessory muscle use to assist the respiratory pattern. No active wheezing.] Oxygen in use via nasal cannula. SPO2 93% Abdomen: Soft, bowel sounds normoactive. Nontender, round and nondistended. No abdominal bruit or thrill noted. No masses noted. Musculoskeletal: No fluid collection. Decreased range of motion is noted. Extremities: No clubbing, cyanosis noted. [ No edema noted.] Upper extremity pulses 2+. Lower extremity pulses 2+. Capillary refill less than 3 seconds. Skin: No unusual lesions or rashes. No skin breakdown appreciated. Neuro: Awake, alert and oriented 3. Moves all extremities well without hemiparesis or paralysis. No essential tremor is appreciated. Result/EKG - Labs CBC & BMP: 08/30/17 06:27 08/30/17 06:27 Lab Results: I have reviewed the past 24 hour labs Labs: Laboratory Results - last 24 hr 08/28/17 08/30/17 08/30/17 09:54 06:27 06:27 WBC RBC Hgb Hct MCV MCH MCHC RDW Plt Count MPV Neut % (Auto) Lymph % (Auto) [place] % (Auto) Eos % (Auto) Baso % (Auto) Neut # (Auto) Lymph # (Auto) [place] # (Auto) Eos # (Auto) Baso # (Auto) Total Counted Immature Gran % Nucleated RBC % Immature Gran # Segmented Neutrophils Band Neutrophils Lymphocytes Monocytes Nucleated RBCs # Platelet Estimate Immature Plt Fraction Hypochromasia Microcytosis ESR Westergren 51 H Sodium Potassium Chloride Carbon Dioxide Anion Gap BUN Creatinine GFR Calculation BUN/Creatinine Ratio Glucose Calculated Osmolality Calcium Magnesium C-Reactive Protein 2.17 H Triglycerides Cholesterol LDL Cholesterol VLDL Cholesterol HDL Cholesterol Heart Disease Risk Ratio Procalcitonin < 0.10 08/30/17 08/30/17 06:27 06:27 WBC 21.1 H D RBC 4.24 Hgb 12.9 L Hct 38.8 L MCV 91.5 MCH 30 MCHC 33.2 RDW 13.0 Plt Count 325 MPV 9.6 Neut % (Auto) 92.1 H Lymph % (Auto) 3.6 L [place] % (Auto) 2.2 Eos % (Auto) 0.0 Baso % (Auto) 0.2 Neut # (Auto) 19.4 H Lymph # (Auto) 0.8 L [place] # (Auto) 0.5 Eos # (Auto) 0.0 Baso # (Auto) 0.1 Total Counted 100 Immature Gran % 1.9 Nucleated RBC % 0.0 Immature Gran # 0.40 Segmented Neutrophils 91 H Band Neutrophils 1 Lymphocytes 5 L Monocytes 3 Nucleated RBCs # 0.00 Platelet Estimate Normal Immature Plt Fraction 0.0 Hypochromasia 1+ Microcytosis 1+ ESR Westergren Sodium 142 Potassium 4.4 Chloride 107 Carbon Dioxide 27 Anion Gap 12.4 BUN 19 H Creatinine 0.90 GFR Calculation 1714 BUN/Creatinine Ratio 21.00 H Glucose 121 H Calculated Osmolality 285.1 Calcium 8.7 Magnesium 2.2 C-Reactive Protein Triglycerides 67 Cholesterol 146 LDL Cholesterol 100.0 VLDL Cholesterol 13.4 HDL Cholesterol 41 Heart Disease Risk Ratio 3.56 Procalcitonin - Diagnostic Findings Procedure: Chest x-ray: report reviewed by me - EKG EKG results: interpreted by me EKG shows: atrial fibrillation
[2017-08-30] MEDS: TERAZOSIN 2 MG CAPSULE PO SCH (21:15)
[2017-08-30] MEDS: CYANOCOBALAMIN 500 MCG TABLET PO SCH (21:15)
[2017-08-30] MEDS: ESCITALOPRAM 10 MG TABLET PO SCH (21:15)
[2017-08-30] MEDS: diphenhydrAMINE CAP 25 MG CAPSULE PO SCH (21:15)
[2017-08-31] MEDS: ALBUTEROL/IPRATROPIUM 3 ML NEB RESP TX SCH ×4 (00:37→19:09)
[2017-08-31] MEDS: methylPREDNISolone SOD SUC 40 MG/1 ML VIAL IV SCH ×3 (02:23→09:50)
[2017-08-31 03:52] LABS: ABG Base Excess 0.7 MMOL/L (-2.5-2.5); ABG HCO3 24.8 MMOL/L (20-26); ABG Oxygen Saturation 90.9 % (95-100); ABG PCO2 36.8 MM HG (35-48); ABG PH 7.433 (7.35-7.45); ABG PO2 59.2 MM HG (80-95); ABG TCO2 21.5 MMOL/L (23-27); Allen Test Positive; Pt O2 Delivery Device Room Air
--- NOTE | 2017-08-31 07:11 | XRay Report ---
XR chest 2V Indication: Amiodarone therapy Comparison: 30 August 2017 Findings: The heart and mediastinum are stable in size and configuration. Pacemaker device is unchanged in position. The pulmonary vascularity is normal in caliber. Lung volumes are increased with prominent bronchial markings. Patchy area pulmonary densities are present bilaterally. The superior slightly improved when compared to previous. No other lung infiltrates, effusions, pneumothorax or other abnormality is demonstrated. Impression: Slight improvement of the pulmonary densities when compared to previous exam. No other significant changes. PROCEDURE INTERPRETED AT [facility] DEPARTMENT OF RADIOLOGY Final Report Signed by: Dr. Zak Gagnon
[2017-08-31 07:43] LABS: Basophils # 0.1 10*3/uL (0.0-0.2); Basophils % 0.4 % (0.0-0.8); Hematocrit 40.2 VOL% (42.0-52.0); Hemoglobin 13.6 GM/DL (14.0-18.0); Immature Granulocytes % 4.7 %; Immature Granulocytes Absolute 0.74 #; Lymphocytes # 1.2 10*3/uL (1.4-4.0); Lymphocytes % 7.6 % (21.2-54.2); Mean Corpuscular HGB Conc 33.8 GM/DL (32-36); Mean Corpuscular Hemoglobin 30 PG (27-34); Mean Corpuscular Volume 89.7 FL (87-102); Mean Platelet Volume 9.3 FL (9.6-12.0); Monocytes # 0.3 10*3/uL (0.11-0.8); Neutrophils # 13.5 10*3/uL (1.4-7.4); Neutrophils % 85.3 % (38.7-73.9); Platelet Count 326 T/CUMM (130-400); Red Blood Count 4.48 MC/CUMM (3.8-5.5); Red Cell Distribution Width 12.8 % (9.3-17.3); White Blood Count 15.8 T/CUMM (4-12)
--- NOTE | 2017-08-31 07:49 | Order Completion Report ---
See report scanned to EMR
[2017-08-31 08:08] LABS: Atypical Lymphocytes Few; Hypochromasia Slight; Lymphocytes 12 % (20-55); Platelet Estimate Adequate; Segmented Neutrophils 87 % (50-85); Total Cells Counted 100
[2017-08-31 08:16] LABS: Calcium 8.6 MG/DL (8.5-10.1); Magnesium 2.4 MG/DL (1.8-2.4); Osmolality,Calculated 282.4 MOS/KG (273-304); Potassium 4.1 MMOL/L (3.5-5.1)
--- NOTE | 2017-08-31 08:50 | Cardiology Progress Note ---
<Mishel Edwards E - Last Filed: 08/31/17 12:33> Assessment and Plan - Time spent with patient Time spent with patient: Greater than 30 minutes (1) Atrial fibrillation and flutter Status: Chronic Assessment and plan: SEE PLAN OF CARE LISTED BELOW Current Visit: No (2) Hypertension Status: Chronic Assessment and plan: SEE PLAN OF CARE LISTED BELOW Current Visit: No (3) Obstructive sleep apnea on CPAP Status: Chronic Assessment and plan: SEE PLAN OF CARE LISTED BELOW Current Visit: No (4) Cardiac pacemaker in situ Status: Chronic Assessment and plan: SEE PLAN OF CARE LISTED BELOW Current Visit: No (5) Interstitial pneumonia Status: Acute Assessment and plan: SEE PLAN OF CARE LISTED BELOW Current Visit: Yes (6) Chronic anticoagulation Status: Chronic Assessment and plan: SEE PLAN OF CARE LISTED BELOW Current Visit: Yes Cardiology - PN: Subj 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 Bowers, 76 WM, with risk factors significant for: hypertension, obesity. History of atrial fibrillation S/P dual-chamber pacemaker insertion. Takes Xarelto for stroke prevention. In the past, patient was placed on numerous antiarrhythmics including Amiodarone for his paroxysmal atrial fibrillation. He has also having bradycardic issues as well. He has undergone five DCCVs however, returned to atrial fibrillation eventually. Admitted August 27, 2017 due to progressive shortness of breath, fever and slight dry cough. Cardiac biomarkers negative. He is being treated for possible pneumonia and/or Amiodarone lung. Sputum culture negative. PFTs revealed small airway disease with reversible component. Amiodorone has been discontinued and heart rate is controlled. AUGUST 31, 2017: Patient is followed for chronic, stable conditions to include hypertension, PAF, ASHLEY. More acutely, patient is being followed for possible pneumonia and/or Amiodarone pulmonary toxicity, shortness of breath. SPO2 saturation improving and noted to be 96% this morning. Denies chest pain, heaviness or tightness. Shortness of breath also improving. Denies orthopnea, PND. Shortness of breath with ambulation is also improving. Continues to have paroxysms of atrial fibrillation, rate controlled. Consult blood pressure averaging 80-94. Will start on low-dose Coreg and monitor him for wheezing. At this point, his pulmonary status continues to improve we will watch this closely. WBCs down to 15.8, afebrile. Continue Xarelto for stroke prevention. Because there is not a recent outpatient echocardiogram, will arrange for a study outpatient at discharge. Will further discuss with Dr. Guerrero and await additional recommendations. AUGUST 31, 2017 REVIEW OF SYSTEMS: Cardiovascular: Denies chest pain, heaviness, tightness. Occasionally feels palpitations, improved overnight. Feels as if he is in normal sinus rhythm now however his heart rate remains irregular. Pulmonary: Coughing has improved. Dyspnea on exertion has improved. No longer having shortness of breath at rest. No orthopnea Gastrointestinal: Denies vomiting, nausea, constipation or diarrhea. IMPRESSION/PLAN: 1. SHORTNESS OF BREATH - multifactorial to include possible CAP, Amiodarone pulmonary toxicity, severe obstructive sleep apnea. This is improving. Amiodarone has been discontinued and will continue to monitor his telemetry 2. ATRIAL FIBRILLATION - currently rate controlled. Starting low-dose Coreg since blood pressure is mildly elevated and we have discontinue use of Amiodarone we will closely monitor him for wheezing. Continue Xarelto for stroke prevention 3. HYPERTENSION - patient takes Losartan daily. Adding Coreg 6.25mg orally BID. 4. OBSTRUCTIVE SLEEP APNEA - compliant with device. Exam (Progress Note) - Constitutional Vitals: Period Temp Pulse Resp BP Sys/Leone Pulse Ox Last 24 Hr 97.4 F-98.8 F 70-96 15-20 132-157/86-92 91-99 Exam: General: [Appears well with no apparent distress.] [Pleasant and cooperative. ] [Appears comfortable.] HEENT: [PERRL, normocephalic, atraumatic. Mucous membranes moist. No jaundice noted. Conjunctiva moist and clear, sclerae anicteric] Neck: Unable to assess for JVD due to habitus. No thyromegaly or lymphadenopathy noted. No carotid bruit appreciated Cardiac: [Irregularly irregular rhythm, controlled rate. No obvious murmur, rub or gallop Lungs: [relatively clear auscultation without accessory muscle use to assist the respiratory pattern. No active wheezing.] Oxygen in use via nasal cannula. SPO2 96% Abdomen: Soft, bowel sounds normoactive. Nontender, round and nondistended. No abdominal bruit or thrill noted. No masses noted. Musculoskeletal: No fluid collection. Decreased range of motion is noted. Extremities: No clubbing, cyanosis noted. [ No edema noted.] Upper extremity pulses 2+. Lower extremity pulses 2+. Capillary refill less than 3 seconds. Skin: No unusual lesions or rashes. No skin breakdown appreciated. Neuro: Awake, alert and oriented 3. Moves all extremities well without hemiparesis or paralysis. No essential tremor is appreciated. Result/EKG - Labs CBC & BMP: 08/31/17 07:23 08/31/17 07:23 Lab Results: I have reviewed the past 24 hour labs Labs: Laboratory Results - last 24 hr 08/28/17 08/28/17 08/31/17 09:54 09:54 03:40 WBC RBC Hgb Hct MCV MCH MCHC RDW Plt Count MPV Neut % (Auto) Lymph % (Auto) [place] % (Auto) Eos % (Auto) Baso % (Auto) Neut # (Auto) Lymph # (Auto) [place] # (Auto) Eos # (Auto) Baso # (Auto) Total Counted Immature Gran % Nucleated RBC % Immature Gran # Segmented Neutrophils Lymphocytes Monocytes Nucleated RBCs # Atypical Lymphocytes Platelet Estimate Immature Plt Fraction Hypochromasia ABG pH 7.433 ABG pCO2 36.8 ABG pO2 59.2 L ABG HCO3 24.8 ABG Total CO2 21.5 L ABG O2 Saturation 90.9 L ABG Base Excess 0.7 FiO2 21.00 Sodium Potassium Chloride Carbon Dioxide Anion Gap BUN Creatinine GFR Calculation BUN/Creatinine Ratio Glucose Calculated Osmolality Calcium Magnesium C-Reactive Protein Procalcitonin < 0.10 Legionella pneumophila Ab Negative 08/31/17 08/31/17 08/31/17 07:23 07:23 07:23 WBC 15.8 H RBC 4.48 Hgb 13.6 L Hct 40.2 L MCV 89.7 MCH 30 MCHC 33.8 RDW 12.8 Plt Count 326 MPV 9.3 L Neut % (Auto) 85.3 H Lymph % (Auto) 7.6 L [place] % (Auto) 2.0 Eos % (Auto) 0.0 Baso % (Auto) 0.4 Neut # (Auto) 13.5 H Lymph # (Auto) 1.2 L [place] # (Auto) 0.3 Eos # (Auto) 0.0 Baso # (Auto) 0.1 Total Counted 100 Immature Gran % 4.7 Nucleated RBC % 0.0 Immature Gran # 0.74 Segmented Neutrophils 87 H Lymphocytes 12 L Monocytes 1 L Nucleated RBCs # 0.00 Atypical Lymphocytes Few Platelet Estimate Adequate Immature Plt Fraction 0.0 Hypochromasia Slight ABG pH ABG pCO2 ABG pO2 ABG HCO3 ABG Total CO2 ABG O2 Saturation ABG Base Excess FiO2 Sodium 140 Potassium 4.1 Chloride 106 Carbon Dioxide 26 Anion Gap 12.1 BUN 16 Creatinine 0.90 GFR Calculation 104 BUN/Creatinine Ratio 17.00 Glucose 149 H Calculated Osmolality 282.4 Calcium 8.6 Magnesium 2.4 C-Reactive Protein 1.57 H Procalcitonin Legionella pneumophila Ab - EKG EKG results: interpreted by me EKG shows: atrial fibrillation <Zoe Guerrero - Last Filed: 08/31/17 17:37> Cardiology - PN: Subj Interval history: I have personally interviewed and evaluated the patient, reviewed the chart and discussed medical decision-making with Practitioner Grace. I have read this note and agree with her documentation here in. Exam (Progress Note) - Constitutional Vitals: Period Temp Pulse Resp BP Sys/Leone Pulse Ox Last 24 Hr 97.4 F-98.8 F 70-96 15-20 132-157/85-89 91-99 Result/EKG - Labs CBC & BMP: 08/31/17 07:23 08/31/17 07:23 Labs: Laboratory Results - last 24 hr 08/28/17 08/31/17 08/31/17 09:54 03:40 07:23 WBC RBC Hgb Hct MCV MCH MCHC RDW Plt Count MPV Neut % (Auto) Lymph % (Auto) [place] % (Auto) Eos % (Auto) Baso % (Auto) Neut # (Auto) Lymph # (Auto) [place] # (Auto) Eos # (Auto) Baso # (Auto) Total Counted Immature Gran % Nucleated RBC % Immature Gran # Segmented Neutrophils Lymphocytes Monocytes Nucleated RBCs # Atypical Lymphocytes Platelet Estimate Immature Plt Fraction Hypochromasia ESR Westergren 42 H ABG pH 7.433 ABG pCO2 36.8 ABG pO2 59.2 L ABG HCO3 24.8 ABG Total CO2 21.5 L ABG O2 Saturation 90.9 L ABG Base Excess 0.7 FiO2 21.00 Sodium Potassium Chloride Carbon Dioxide Anion Gap BUN Creatinine GFR Calculation BUN/Creatinine Ratio Glucose Calculated Osmolality Calcium Magnesium C-Reactive Protein Legionella pneumophila Ab Negative 1008/31/17 08/31/17 07:23 07:23 07:23 WBC 15.8 H RBC 4.48 Hgb 13.6 L Hct 40.2 L MCV 89.7 MCH 30 MCHC 33.8 RDW 12.8 Plt Count 326 MPV 9.3 L Neut % (Auto) 85.3 H Lymph % (Auto) 7.6 L [place] % (Auto) 2.0 Eos % (Auto) 0.0 Baso % (Auto) 0.4 Neut # (Auto) 13.5 H Lymph # (Auto) 1.2 L [place] # (Auto) 0.3 Eos # (Auto) 0.0 Baso # (Auto) 0.1 Total Counted 100 Immature Gran % 4.7 Nucleated RBC % 0.0 Immature Gran # 0.74 Segmented Neutrophils 87 H Lymphocytes 12 L Monocytes 1 L Nucleated RBCs # 0.00 Atypical Lymphocytes Few Platelet Estimate Adequate Immature Plt Fraction 0.0 Hypochromasia Slight ESR Westergren ABG pH ABG pCO2 ABG pO2 ABG HCO3 ABG Total CO2 ABG O2 Saturation ABG Base Excess FiO2 Sodium 140 Potassium 4.1 Chloride 106 Carbon Dioxide 26 Anion Gap 12.1 BUN 16 Creatinine 0.90 GFR Calculation 104 BUN/Creatinine Ratio 17.00 Glucose 149 H Calculated Osmolality 282.4 Calcium 8.6 Magnesium 2.4 C-Reactive Protein 1.57 H Legionella pneumophila Ab
[2017-08-31] MEDS: ASCORBIC ACID 500 MG TABLET PO SCH (09:04)
[2017-08-31] MEDS: OMEGA 3 ACID ETHYL ESTERS 1 GM CAPSULE PO SCH (09:04)
[2017-08-31] MEDS: MONTELUKAST 10 MG TABLET PO SCH (09:04)
[2017-08-31] MEDS: LOSARTAN 50 MG TABLET PO SCH (09:04)
[2017-08-31] MEDS: POTASSIUM GLUCONATE 500 MG TABLET PO SCH (09:04)
[2017-08-31] MEDS: RIVAROXABAN 20 MG TABLET PO SCH (09:05)
[2017-08-31] MEDS: DOCUSATE SODIUM 100 MG CAPSULE PO SCH ×2 (09:05→20:32)
[2017-08-31] MEDS: MULTIVITAMIN (OCUVITE) TABLET PO SCH (09:05)
[2017-08-31] MEDS: PANTOPRAZOLE 40 MG TABLET PO SCH (09:05)
[2017-08-31] MEDS: LEVOFLOXACIN INJ 500 MG in PREMIX 1 EACH IV SCH (09:08)
--- NOTE | 2017-08-31 12:05 | Pulmonology Progress Note ---
Pulmonary - PN: Subj Interval history: Otto Avila, [facility]-, acting as scribe for Dr. Dayo Montejo Mr. Bowers is a 76-year-old white male who we saw in initial pulmonary consultation 08/28/2017. At that time, our impressions were: 1. Subacute/acute onset of worsening dyspnea on exertion and is associated with a 5 lobe alveolar/interstitial infiltrate. This could be any number of causes that include infections and hypersensitivity reactions. 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 2. Mild large airway wheezing. 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 3. History of atrial fib 4. High blood 5. History of hypoxemia with typical O2 sats on room air 91% predating present illness 6. See past history 08/29/2017. The patient was seen today along with Yessi Julio RN. The patient' s chest x-ray today is slightly improved from previous films. He definitely reports that he is breathing better. Sputum Gram stain from yesterday showed many gram-positive cocci in clusters and moderate gram-negative rods. Sputum culture is only growing normal effie at 12 hours. We are going to repeat sputum culture for Gram stain, culture and sensitivity. 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 During the evenings he has had significant shakiness which we feel is most likely secondary to the Solu -Medrol. We are going to decrease his dose to 40 mg IV every 8 hours and follow -up his response. We will repeat a chest x-ray tomorrow. We are also going to repeat a sed rate and C-reactive protein. Note, at admission these were markedly elevated at 92 and 9.22, respectively. Cold agglutinins are negative at 1:2. Legionella and pro-calcitonin are both pending. Doppler venograms done 08/28/2017 showed no evidence of DVT in either lower extremity. ABGs this morning on an FiO2 of 21% showed a pH of 7.420, PCO2 33.4, PO2 63.6, bicarb 22.6, and oxygen saturation 92.0%. Medications have been reviewed. Solu-Medrol decreased as above. Labs been reviewed. No other new labs were drawn today. 08/30/2017. The patient was seen today along with his , female friend, and Ysesi Julio RN. Mr. Bowers continues to report improving respiratory status. Chest x-ray today continues to show improvement of his 5 lobe alveolar/ interstitial infiltrate. Sed rate has fallen to 51 and C-reactive protein is fallen to 2.17. We will repeat both of these tomorrow. Pulmonary function tests showed small airways disease with reversible component. Forced vital capacity was 75% of predicted consistent with mild restrictive disease. We suspect that his baseline is approximately 90% of predicted. We have started the patient on duo nebs 4 times daily and as needed. He is already on Singulair which needs to be continued. Tomorrow, we are going to repeat room air blood gases to see if his oxygenation has improved. The patient asked about his elevated white count. We feel that this is almost certainly secondary to the steroids that have been necessary. Medications have been reviewed. We made no changes today other than the addition of DuoNeb's. Labs have been reviewed. White count is 21,100 with 92.1% segs; H&H 12.9/38.8; platelet count 325,000; sed rate 51; C-reactive protein 2.17; creatinine 0.90, BUN 19, electrolytes are normal; fasting lipoprotein profile shows a total cholesterol 146, LDL 100, HDL 41, triglycerides 67 08/31/2017. Patient was seen today along with his and Sarah Jordan RN. Mr. Bowers's chest x-ray continues to improve daily. Pro-calcitonin was normal at less than 0.10 and Legionella was negative. 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 Nonetheless, given his exposure while inpatient, where again continue his antibiotics for the time being. However, his IV is infiltrated so we will change his Levaquin to oral dose and stop the Solu-Medrol and start prednisone 40 mg every 12 hours. He complains of sinus drainage with postnasal drip and this will be treated with Zyrtec 10 mg at bedtime. Medications have been reviewed. Labs been reviewed. White count is 15,800 with 85.3% segs; H&H 13.6/40.2; platelet count 326,000; creatinine 0.90, BUN 16, electrolytes are normal; sed rate has fallen to 42 and C-reactive protein is fallen to 1.57 ABGs this morning on an FiO2 of 21% showed pH of 7.433, PCO2 36.8, PO2 59.2, bicarb 24.8, and oxygen saturation 90.9%. Exam (Progress Note) - Constitutional Vitals: Period Temp Pulse Resp BP Sys/Leone Pulse Ox Last 24 Hr 97.4 F-98.8 F 70-96 15-20 132-157/86-89 91-99 Exam: Chest with slight prolongation of expiration and minimal large airway wheeze Heart no gallop Abdomen is obese, but nontender and nondistended; bowel sounds are positive 4 Lower extremities with nothing to suggest acute deep venous thrombophlebitis Psychiatric oriented 3; appreciative of his care Neurologic long-term motor function is intact Plan: Continue present treatment. Stop Solu-Medrol and start prednisone 40 mg every 12 hours. Change Levaquin to oral dose. Start Zyrtec 10 mg at bedtime. See orders. Results - Labs CBC & BMP: 08/31/17 07:23 08/31/17 07:23
[2017-08-31] MEDS: CARVEDILOL 6.25 MG TABLET PO SCH (20:32)
[2017-08-31] MEDS: TERAZOSIN 2 MG CAPSULE PO SCH (20:32)
[2017-08-31] MEDS: diphenhydrAMINE CAP 25 MG CAPSULE PO SCH (20:32)
[2017-08-31] MEDS: CYANOCOBALAMIN 500 MCG TABLET PO SCH (20:32)
[2017-08-31] MEDS: predniSONE 20 MG TABLET PO SCH (20:32)
[2017-08-31] MEDS: CETIRIZINE 10 MG TABLET PO SCH (20:32)
[2017-08-31] MEDS: ESCITALOPRAM 10 MG TABLET PO SCH (20:32)
[2017-09-01] MEDS: ALBUTEROL/IPRATROPIUM 3 ML NEB RESP TX SCH ×4 (00:05→19:22)
[2017-09-01 05:30] LABS: Basophils # 0.1 10*3/uL (0.0-0.2); Basophils % 0.8 % (0.0-0.8); Hematocrit 38.6 VOL% (42.0-52.0); Hemoglobin 13.1 GM/DL (14.0-18.0); Immature Granulocytes % 8.8 %; Immature Granulocytes Absolute 1.48 #; Lymphocytes # 0.9 10*3/uL (1.4-4.0); Lymphocytes % 5.1 % (21.2-54.2); Mean Corpuscular HGB Conc 33.9 GM/DL (32-36); Mean Corpuscular Hemoglobin 31 PG (27-34); Mean Corpuscular Volume 89.8 FL (87-102); Mean Platelet Volume 9.2 FL (9.6-12.0); Monocytes # 0.8 10*3/uL (0.11-0.8); Monocytes % 4.9 % (1.7-12.7); Neutrophils # 13.5 10*3/uL (1.4-7.4); Neutrophils % 80.4 % (38.7-73.9); Platelet Count 310 T/CUMM (130-400); White Blood Count 16.8 T/CUMM (4-12)
[2017-09-01 05:53] LABS: Band Neutrophils 1 % (0-10); Hypochromasia 1+; Lymphocytes 10 % (20-55); Platelet Estimate Adequate; Segmented Neutrophils 82 % (50-85); Total Cells Counted 100
[2017-09-01 05:54] LABS: Giant Platelets Few; Microcytosis Slight
[2017-09-01 06:00] LABS: Calcium 8.6 MG/DL (8.5-10.1); Magnesium 2.4 MG/DL (1.8-2.4); Osmolality,Calculated 281.4 MOS/KG (273-304); Potassium 4.1 MMOL/L (3.5-5.1)
[2017-09-01] MEDS: DOCUSATE SODIUM 100 MG CAPSULE PO SCH ×2 (09:00→21:05)
[2017-09-01] MEDS: MULTIVITAMIN (OCUVITE) TABLET PO SCH (09:00)
[2017-09-01] MEDS: LOSARTAN 50 MG TABLET PO SCH (09:00)
[2017-09-01] MEDS: MONTELUKAST 10 MG TABLET PO SCH (09:00)
[2017-09-01] MEDS: POTASSIUM GLUCONATE 500 MG TABLET PO SCH (09:00)
[2017-09-01] MEDS: LEVOFLOXACIN 500 MG TABLET PO SCH (09:01)
[2017-09-01] MEDS: ASCORBIC ACID 500 MG TABLET PO SCH (09:01)
[2017-09-01] MEDS: RIVAROXABAN 20 MG TABLET PO SCH (09:01)
[2017-09-01] MEDS: predniSONE 20 MG TABLET PO SCH ×2 (09:01→21:05)
[2017-09-01] MEDS: PANTOPRAZOLE 40 MG TABLET PO SCH (09:01)
[2017-09-01] MEDS: CARVEDILOL 6.25 MG TABLET PO SCH ×2 (09:01→21:05)
[2017-09-01] MEDS: OMEGA 3 ACID ETHYL ESTERS 1 GM CAPSULE PO SCH (09:01)
--- NOTE | 2017-09-01 11:14 | Pulmonology Progress Note ---
Pulmonary - PN: Subj Interval history: Otto Avila, [facility]-, acting as scribe for Dr. Dayo Montejo Mr. Bowers is a 76-year-old white male who we saw in initial pulmonary consultation 08/28/2017. At that time, our impressions were: 1. Subacute/acute onset of worsening dyspnea on exertion and is associated with a 5 lobe alveolar/interstitial infiltrate. This could be any number of causes that include infections and hypersensitivity reactions. I suspect this will machine turner to be amiodarone lung. 2. Mild large airway wheezing. 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 3. History of atrial fib 4. High blood 5. History of hypoxemia with typical O2 sats on room air 91% predating present illness 6. See past history 08/29/2017. The patient was seen today along with Yessi Julio RN. The patient' s chest x-ray today is slightly improved from previous films. He definitely reports that he is breathing better. Sputum Gram stain from yesterday showed many gram-positive cocci in clusters and moderate gram-negative rods. Sputum culture is only growing normal effie at 12 hours. We are going to repeat sputum culture for Gram stain, culture and sensitivity. 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 During the evenings he has had significant shakiness which we feel is most likely secondary to the Solu -Medrol. We are going to decrease his dose to 40 mg IV every 8 hours and follow -up his response. We will repeat a chest x-ray tomorrow. We are also going to repeat a sed rate and C-reactive protein. Note, at admission these were markedly elevated at 92 and 9.22, respectively. Cold agglutinins are negative at 1:2. Legionella and pro-calcitonin are both pending. Doppler venograms done 08/28/2017 showed no evidence of DVT in either lower extremity. ABGs this morning on an FiO2 of 21% showed a pH of 7.420, PCO2 33.4, PO2 63.6, bicarb 22.6, and oxygen saturation 92.0%. Medications have been reviewed. Solu-Medrol decreased as above. Labs been reviewed. No other new labs were drawn today. 08/30/2017. The patient was seen today along with his , female friend, and Yessi Julio RN. Mr. Bowers continues to report improving respiratory status. Chest x-ray today continues to show improvement of his 5 lobe alveolar/ interstitial infiltrate. Sed rate has fallen to 51 and C-reactive protein is fallen to 2.17. We will repeat both of these tomorrow. Pulmonary function tests showed small airways disease with reversible component. Forced vital capacity was 75% of predicted consistent with mild restrictive disease. We suspect that his baseline is approximately 90% of predicted. We have started the patient on duo nebs 4 times daily and as needed. He is already on Singulair which needs to be continued. Tomorrow, we are going to repeat room air blood gases to see if his oxygenation has improved. The patient asked about his elevated white count. We feel that this is almost certainly secondary to the steroids that have been necessary. Medications have been reviewed. We made no changes today other than the addition of DuoNeb's. Labs have been reviewed. White count is 21,100 with 92.1% segs; H&H 12.9/38.8; platelet count 325,000; sed rate 51; C-reactive protein 2.17; creatinine 0.90, BUN 19, electrolytes are normal; fasting lipoprotein profile shows a total cholesterol 146, LDL 100, HDL 41, triglycerides 67 08/31/2017. Patient was seen today along with his and Sarah Jordan RN. Mr. Bowers's chest x-ray continues to improve daily. Pro-calcitonin was normal at less than 0.10 and Legionella was negative. 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 Nonetheless, given his exposure while inpatient, where again continue his antibiotics for the time being. However, his IV is infiltrated so we will change his Levaquin to oral dose and stop the Solu-Medrol and start prednisone 40 mg every 12 hours. He complains of sinus drainage with postnasal drip and this will be treated with Zyrtec 10 mg at bedtime. Medications have been reviewed. Labs been reviewed. White count is 15,800 with 85.3% segs; H&H 13.6/40.2; platelet count 326,000; creatinine 0.90, BUN 16, electrolytes are normal; sed rate has fallen to 42 and C-reactive protein is fallen to 1.57 ABGs this morning on an FiO2 of 21% showed pH of 7.433, PCO2 36.8, PO2 59.2, bicarb 24.8, and oxygen saturation 90.9%. 09/01/2017. The patient was seen today along with his and Sarah Jordan RN. Mr. Bowers continues to improve daily from a pulmonary standpoint. Chest x-ray and ABGs were not done today, but they have been ordered for tomorrow. We have consulted manager social responsibility to get the patient in nebulizer for home use. He will continue duo nebs 4 times daily and as needed. We are also going to go ahead and start Symbicort 160/4.52 puffs twice daily. Ideally, he would take these doses after a nebulizer treatment. We told the patient that if his chest x-ray and ABGs show more improvement tomorrow, he would most likely be ready for discharge from a pulmonary standpoint. Medications have been reviewed. Labs been reviewed. White count is 16,800 with 80.4% segs; H&H 13.1/38.6; platelet count 310,000; creatinine 0.90, BUN 18, electrolytes are normal Exam (Progress Note) - Constitutional Vitals: Period Temp Pulse Resp BP Sys/Leone Pulse Ox Last 24 Hr 97.3 F-98.3 F 66-104 6-20 108-143/68-97 91-99 Exam: Chest with slight prolongation of expiration and wheeze free Heart no gallop Abdomen is obese, but nontender and nondistended; bowel sounds are positive 4 Lower extremities with nothing to suggest acute deep venous thrombophlebitis Psychiatric oriented 3; appreciative of his care Neurologic long-term motor function is intact Plan: Continue present treatment. Start Symbicort. Tomorrow, will repeat chest x-ray, ABGs, sed rate, and C-reactive protein. Nebulizer for home use. See orders. Results - Labs CBC & BMP: 09/01/17 05:06 09/01/17 05:06
[2017-09-01] MEDS: BUDESONIDE/FORMOTEROL 160-4.5 INHALER 6 GM INH SCH ×2 (12:46→21:10)
--- NOTE | 2017-09-01 13:11 | Cardiology Progress Note ---
<Mishel Edwards E - Last Filed: 09/01/17 13:07> Assessment and Plan - Time spent with patient Time spent with patient: Greater than 30 minutes (1) Atrial fibrillation and flutter Status: Chronic Assessment and plan: SEE PLAN OF CARE LISTED BELOW Current Visit: No (2) Hypertension Status: Chronic Assessment and plan: SEE PLAN OF CARE LISTED BELOW Current Visit: No (3) Obstructive sleep apnea on CPAP Status: Chronic Assessment and plan: SEE PLAN OF CARE LISTED BELOW Current Visit: No (4) Cardiac pacemaker in situ Status: Chronic Assessment and plan: SEE PLAN OF CARE LISTED BELOW Current Visit: No (5) Interstitial pneumonia Status: Acute Assessment and plan: SEE PLAN OF CARE LISTED BELOW Current Visit: Yes (6) Chronic anticoagulation Status: Chronic Assessment and plan: SEE PLAN OF CARE LISTED BELOW Current Visit: Yes Cardiology - PN: Subj Interval history: VISUAL BASIC DEVELOPER: DR. HIGUERA SUMMARY: Mr. Bowers, 76 WM, with risk factors significant for: hypertension, obesity. History of atrial fibrillation S/P dual-chamber pacemaker insertion. Takes Xarelto for stroke prevention. In the past, patient was placed on numerous antiarrhythmics including Amiodarone for his paroxysmal atrial fibrillation. He has also having bradycardic issues as well. He has undergone five DCCVs however, returned to atrial fibrillation eventually. Admitted August 27, 2017 due to progressive shortness of breath, fever and slight dry cough. Cardiac biomarkers negative. He is being treated for possible pneumonia and/or Amiodarone lung. Sputum culture negative. PFTs revealed small airway disease with reversible component. Amiodorone has been discontinued and heart rate is controlled. SEPTEMBER 01, 2017: Patient is followed for chronic, stable conditions to include hypertension, PAF, ASHLEY. Patient is being followed for acute conditions to include shortness of breath, possible pneumonia and/or Amiodarone pulmonary toxicity. Denies chest pain, heaviness, tightness. Reports shortness of breath markedly improved, cough improved, no orthopnea. SPO2 saturation 91%. Continues to have paroxysms of atrial fibrillation, rate controlled. Initiated Coreg yesterday and he is tolerating this well without wheezing. At this point , his pulmonary status continues to improve we continue to watch this closely. WBCs 16.8, afebrile. Continue Xarelto for stroke prevention. Because there is not a recent outpatient echocardiogram, will arrange for a study outpatient at discharge. At this point, cardiac conditions are stable and will sign off. Anticipate patient will be discharged home tomorrow. It has been arranged for him to follow with Dr. Higuera in 1 month. In approximately 3 weeks he will undergo echocardiogram at [facility]. Will further discuss with Dr. Guerrero and await additional recommendations. SEPTEMBER 01, 2017 REVIEW OF SYSTEMS: Cardiovascular: Denies chest pain, heaviness, tightness. Denies palpitations. Pulmonary: Shortness of breath has improved. Coughing has improved. No orthopnea Gastrointestinal: Denies vomiting, nausea, constipation or diarrhea. IMPRESSION/PLAN: 1. SHORTNESS OF BREATH - multifactorial to include possible CAP, Amiodarone pulmonary toxicity, severe obstructive sleep apnea. This is improving. Amiodarone has been discontinued and will continue to monitor his telemetry. Hopefully patient will be discharged home soon 2. ATRIAL FIBRILLATION - currently rate controlled. Started low-dose Coreg yesterday and he is tolerating this well. Continue Xarelto for stroke prevention 3. HYPERTENSION - patient takes Losartan daily. Now on beta blockade. 4. OBSTRUCTIVE SLEEP APNEA - compliant with device. Exam (Progress Note) - Constitutional Vitals: Period Temp Pulse Resp BP Sys/Leone Pulse Ox Last 24 Hr 97.3 F-98.3 F 66-104 6-20 108-143/68-97 91-99 Exam: General: [Appears well with no apparent distress.] [Pleasant and cooperative. ] [Appears comfortable.] HEENT: [PERRL, normocephalic, atraumatic. Mucous membranes moist. No jaundice noted. Conjunctiva moist and clear, sclerae anicteric] Neck: Unable to assess for JVD due to habitus. No thyromegaly or lymphadenopathy noted. No carotid bruit appreciated Cardiac: [Irregularly irregular rhythm, controlled rate. No obvious murmur, rub or gallop Lungs: [relatively clear auscultation without accessory muscle use to assist the respiratory pattern. No active wheezing.] Oxygen in use via nasal cannula. SPO2 96% Abdomen: Soft, bowel sounds normoactive. Nontender, round and nondistended. No abdominal bruit or thrill noted. No masses noted. Musculoskeletal: No fluid collection. Decreased range of motion is noted. Extremities: No clubbing, cyanosis noted. [ No edema noted.] Upper extremity pulses 2+. Lower extremity pulses 2+. Capillary refill less than 3 seconds. Skin: No unusual lesions or rashes. No skin breakdown appreciated. Neuro: Awake, alert and oriented 3. Moves all extremities well without hemiparesis or paralysis. No essential tremor is appreciated. Result/EKG - Labs CBC & BMP: 09/01/17 05:06 09/01/17 05:06 Lab Results: I have reviewed the past 24 hour labs Labs: Laboratory Results - last 24 hr 09/01/17 09/01/17 05:06 05:06 WBC 16.8 H RBC 4.30 Hgb 13.1 L Hct 38.6 L MCV 89.8 MCH 31 MCHC 33.9 RDW 13.0 Plt Count 310 MPV 9.2 L Neut % (Auto) 80.4 H Lymph % (Auto) 5.1 L [place] % (Auto) 4.9 Eos % (Auto) 0.0 Baso % (Auto) 0.8 Neut # (Auto) 13.5 H Lymph # (Auto) 0.9 L [place] # (Auto) 0.8 Eos # (Auto) 0.0 Baso # (Auto) 0.1 Total Counted 100 Immature Gran % 8.8 Nucleated RBC % 0.0 Immature Gran # 1.48 Segmented Neutrophils 82 Band Neutrophils 1 Lymphocytes 10 L Monocytes 7 Nucleated RBCs # 0.00 Platelet Estimate Adequate Giant Platelets Few Immature Plt Fraction 0.0 Hypochromasia 1+ Microcytosis Slight Sodium 140 Potassium 4.1 Chloride 104 Carbon Dioxide 30 Anion Gap 10.1 BUN 18 Creatinine 0.90 GFR Calculation 104 BUN/Creatinine Ratio 20.00 Glucose 125 H Calculated Osmolality 281.4 Calcium 8.6 Magnesium 2.4 - EKG EKG results: interpreted by me EKG shows: atrial fibrillation Specialty Discharge - Follow Up or Referrals Follow up with: Nakul Higuera MD [Physician] - (3-4 weeks. One week prior to visit: echo at [facility] RE: cardiac evaluation) <Zoe Guerrero - Last Filed: 09/01/17 18:06> Cardiology - PN: Subj Interval history: I have personally interviewed and evaluated the patient, reviewed the chart and discussed medical decision-making with Practitioner Grace. I have read this note and agree with her documentation here in. Exam (Progress Note) - Constitutional Vitals: Period Temp Pulse Resp BP Sys/Leone Pulse Ox Last 24 Hr 97.3 F-98.3 F 66-104 6-20 108-143/68-97 90-99 Result/EKG - Labs CBC & BMP: 09/01/17 05:06 09/01/17 05:06 Labs: Laboratory Results - last 24 hr 09/01/17 09/01/17 05:06 05:06 WBC 16.8 H RBC 4.30 Hgb 13.1 L Hct 38.6 L MCV 89.8 MCH 31 MCHC 33.9 RDW 13.0 Plt Count 310 MPV 9.2 L Neut % (Auto) 80.4 H Lymph % (Auto) 5.1 L [place] % (Auto) 4.9 Eos % (Auto) 0.0 Baso % (Auto) 0.8 Neut # (Auto) 13.5 H Lymph # (Auto) 0.9 L [place] # (Auto) 0.8 Eos # (Auto) 0.0 Baso # (Auto) 0.1 Total Counted 100 Immature Gran % 8.8 Nucleated RBC % 0.0 Immature Gran # 1.48 Segmented Neutrophils 82 Band Neutrophils 1 Lymphocytes 10 L Monocytes 7 Nucleated RBCs # 0.00 Platelet Estimate Adequate Giant Platelets Few Immature Plt Fraction 0.0 Hypochromasia 1+ Microcytosis Slight Sodium 140 Potassium 4.1 Chloride 104 Carbon Dioxide 30 Anion Gap 10.1 BUN 18 Creatinine 0.90 GFR Calculation 104 BUN/Creatinine Ratio 20.00 Glucose 125 H Calculated Osmolality 281.4 Calcium 8.6 Magnesium 2.4
--- NOTE | 2017-09-01 14:27 | Family Practice Progress Note ---
Family Practice - PN: Subj Interval history: Patient seen this morning. He was breathing some better on 2 L of nasal cannula. Oxygen sats about 91-92%. In no acute respiratory distress. I did note pulmonary's note and there are some studies pending at this time. He is in good spirits. We are continuing current antibiotics of Levaquin and obviously holding amiodarone at this time. Appreciate specialty assistance on this case and will follow along very closely. Monitoring labs at this time 08/30/2017: Patient seen this morning and states he feels significantly better, breathing easier. At present eating all of his breakfast and states that it was "good". Denies any significant shortness of breath at present. Is off his oxygen currently, while eating. I do not appreciate any wheezing rales or rhonchi. His chest x-ray remained unchanged. He does have an elevation of white count presumably at least in part due to steroids. He is not running a fever and his weight is unchanged. We will continue to monitor along with pulmonary at this time. Appreciate their assistance 08/31/2017: Patient seen. Again his breathing somewhat easier today. He is continuing to be on IV steroids and white count is up moderately from this reason. He is not febrile and is eating well. He is still on oxygen. States that he does get a little short of breath when he gets off of it for long periods of time. No fever chills nausea vomiting diarrhea. Denied any chest pain or abdominal discomfort or leg swelling. We will continue to monitor him and hopefully can be going home the next day or 2. Following pulmonary is to when we need to taper his steroids Exam (Progress Note) - Constitutional Vitals: Period Temp Pulse Resp BP Sys/Leone Pulse Ox Last 24 Hr 97.3 F-98.3 F 66-104 6-20 108-143/68-97 91-99 Exam: Generally stable hemodynamically. Please see lab HEENT neck is supple trachea midline Cardiovascular rate is irregular. There is no gallop or rub Lungs no appreciated wheezing or rhonchi at this time. Abdomen soft nondistended, patient is eating well. Voiding well. Extremities no clubbing cyanosis or edema Results - Labs CBC & BMP: 09/01/17 05:06 09/01/17 05:06 Assessment and Plan (1) Amiodarone pulmonary toxicity Status: Acute Assessment and plan: 09-13: This medication has been stopped 09/01/2017: On steroids. Pulmonary following very closely appreciate their assistance Current Visit: Yes (2) Atrial fibrillation and flutter Status: Chronic Assessment and plan: : This is chronic the patient is stable at this time. No chest pain Current Visit: No Specialty Discharge - Follow Up or Referrals Follow up with: Nakul Higuera MD [Physician] - (3-4 weeks. One week prior to visit: echo at [facility] RE: cardiac evaluation)
--- NOTE | 2017-09-01 14:30 | Family Practice Progress Note ---
Family Practice - PN: Subj Interval history: Patient seen this morning. He was breathing some better on 2 L of nasal cannula. Oxygen sats about 91-92%. In no acute respiratory distress. I did note pulmonary's note and there are some studies pending at this time. He is in good spirits. We are continuing current antibiotics of Levaquin and obviously holding amiodarone at this time. Appreciate specialty assistance on this case and will follow along very closely. Monitoring labs at this time 08/30/2017: Patient seen this morning and states he feels significantly better, breathing easier. At present eating all of his breakfast and states that it was "good". Denies any significant shortness of breath at present. Is off his oxygen currently, while eating. I do not appreciate any wheezing rales or rhonchi. His chest x-ray remained unchanged. He does have an elevation of white count presumably at least in part due to steroids. He is not running a fever and his weight is unchanged. We will continue to monitor along with pulmonary at this time. Appreciate their assistance 08/31/2017: Patient seen. Again his breathing somewhat easier today. He is continuing to be on IV steroids and white count is up moderately from this reason. He is not febrile and is eating well. He is still on oxygen. States that he does get a little short of breath when he gets off of it for long periods of time. No fever chills nausea vomiting diarrhea. Denied any chest pain or abdominal discomfort or leg swelling. We will continue to monitor him and hopefully can be going home the next day or 2. Following pulmonary is to when we need to taper his steroids 09/01/2017: Patient doing well. He is still breathing continuously better. His x-ray yesterday revealed some slight improvement. He is still on oxygen and I am going to test him without it walking the room. (We did this, he has an oxygen sat of 91% while sitting and when he walks around approximately 40 feet it does go down to 88%. Will discuss with pulmonary whether they will could consider the possibility of O2 necessity, at least for a while. Family certainly does want this, if possible. No fever chills nausea vomiting or diarrhea. His white count is still slightly up otherwise lab looks okay. He is on antibiotics and is not having any difficulty with abdominal discomfort or any flank pain. There is no leg swelling and he is very alert and oriented. Exam (Progress Note) - Constitutional Vitals: Period Temp Pulse Resp BP Sys/Leone Pulse Ox Last 24 Hr 97.3 F-98.3 F 66-104 6-20 108-143/68-97 91-99 Exam: HEENT essentially negative. Neck is supple trachea midline Cardiovascular rate is irregular and atrial fibrillation/flutter. Lungs a few wheezes only. No rales rhonchi Abdomen soft nondistended patient is eating well Extremities no clubbing cyanosis or edema Results - Labs CBC & BMP: 09/01/17 05:06 09/01/17 05:06 Assessment and Plan (1) Amiodarone pulmonary toxicity Status: Acute Assessment and plan: 09-13: This medication has been stopped 09/01/2017: On steroids. Pulmonary following very closely appreciate their assistance Current Visit: Yes (2) Atrial fibrillation and flutter Status: Chronic Assessment and plan: : This is chronic the patient is stable at this time. No chest pain Current Visit: No Specialty Discharge - Follow Up or Referrals Follow up with: Nakul Higuera MD [Physician] - (3-4 weeks. One week prior to visit: echo at [facility] RE: cardiac evaluation)
[2017-09-01] MEDS: TERAZOSIN 2 MG CAPSULE PO SCH (21:05)
[2017-09-01] MEDS: ESCITALOPRAM 10 MG TABLET PO SCH (21:05)
[2017-09-01] MEDS: CYANOCOBALAMIN 500 MCG TABLET PO SCH (21:05)
[2017-09-01] MEDS: CETIRIZINE 10 MG TABLET PO SCH (21:05)
[2017-09-01] MEDS: diphenhydrAMINE CAP 25 MG CAPSULE PO SCH (21:06)
[2017-09-02] MEDS: ALBUTEROL/IPRATROPIUM 3 ML NEB RESP TX SCH ×3 (00:06→13:40)
[2017-09-02 03:33] LABS: Basophils % 0.1 % (0.0-0.8); Eosinophils % 0.1 % (0.00-10.9); Hematocrit 39.7 VOL% (42.0-52.0); Hemoglobin 13.4 GM/DL (14.0-18.0); Immature Granulocytes % 10.5 %; Lymphocytes # 0.8 10*3/uL (1.4-4.0); Lymphocytes % 5.9 % (21.2-54.2); Mean Corpuscular HGB Conc 33.8 GM/DL (32-36); Mean Corpuscular Hemoglobin 30 PG (27-34); Mean Corpuscular Volume 89.6 FL (87-102); Mean Platelet Volume 9.4 FL (9.6-12.0); Monocytes # 0.6 10*3/uL (0.11-0.8); Monocytes % 4.3 % (1.7-12.7); NRBC # 0.02 10*3/uL; Neutrophils # 11.3 10*3/uL (1.4-7.4); Neutrophils % 79.1 % (38.7-73.9); Platelet Count 292 T/CUMM (130-400); Red Blood Count 4.43 MC/CUMM (3.8-5.5); Red Cell Distribution Width 12.8 % (9.3-17.3); White Blood Count 14.3 T/CUMM (4-12)
[2017-09-02 04:07] LABS: ABG Base Excess 3.1 MMOL/L (-2.5-2.5); ABG HCO3 27.2 MMOL/L (20-26); ABG Oxygen Saturation 96.8 % (95-100); ABG PCO2 39.5 MM HG (35-48); ABG PH 7.447 (7.35-7.45); ABG PO2 81.3 MM HG (80-95); ABG TCO2 23.6 MMOL/L (23-27); Allen Test Positive; Pt O2 Delivery Device BIPAP
[2017-09-02 04:13] LABS: Calcium 8.5 MG/DL (8.5-10.1); Magnesium 2.4 MG/DL (1.8-2.4); Osmolality,Calculated 283.3 MOS/KG (273-304); Potassium 3.8 MMOL/L (3.5-5.1)
[2017-09-02 05:04] LABS: Band Neutrophils 2 % (0-10); Giant Platelets Few; Hypochromasia 1+; Lymphocytes 7 % (20-55); Microcytosis Slight; Platelet Estimate Adequate; Segmented Neutrophils 87 % (50-85); Total Cells Counted 100
[2017-09-02] MEDS: BUDESONIDE/FORMOTEROL 160-4.5 INHALER 6 GM INH SCH (09:40)
[2017-09-02] MEDS: MONTELUKAST 10 MG TABLET PO SCH (09:41)
[2017-09-02] MEDS: ASCORBIC ACID 500 MG TABLET PO SCH (09:41)
[2017-09-02] MEDS: LOSARTAN 50 MG TABLET PO SCH (09:41)
[2017-09-02] MEDS: RIVAROXABAN 20 MG TABLET PO SCH (09:41)
[2017-09-02] MEDS: LEVOFLOXACIN 500 MG TABLET PO SCH (09:41)
[2017-09-02] MEDS: POTASSIUM GLUCONATE 500 MG TABLET PO SCH (09:41)
[2017-09-02] MEDS: predniSONE 20 MG TABLET PO SCH (09:41)
[2017-09-02] MEDS: PANTOPRAZOLE 40 MG TABLET PO SCH (09:41)
[2017-09-02] MEDS: CARVEDILOL 6.25 MG TABLET PO SCH (09:42)
[2017-09-02] MEDS: OMEGA 3 ACID ETHYL ESTERS 1 GM CAPSULE PO SCH (09:42)
[2017-09-02] MEDS: MULTIVITAMIN (OCUVITE) TABLET PO SCH (09:42)
[2017-09-02] MEDS: DOCUSATE SODIUM 100 MG CAPSULE PO SCH (09:42)
--- NOTE | 2017-09-02 10:48 | XRay Report ---
XR chest 2V Indication: Amiodarone lung Comparison: Chest x-ray dated August 31, 2017 Technique: Frontal and lateral views of the chest. Findings: Continued mild cardiomegaly. Pacemaker apparatus again demonstrated. Interval increased mild atelectasis/consolidation within the lower right lung laterally. Continued scattered coarse and pulmonary interstitial prominence and scarlike opacities. Continued mild elevation of the right hemidiaphragm. Visualized osseous and surrounding soft tissue structures appear grossly unchanged. IMPRESSION: As above. PROCEDURE INTERPRETED AT [facility] DEPARTMENT OF RADIOLOGY Final Report Signed by: Dr Isidro Gray
[2017-09-02] MEDS ORDERED: predniSONE 20 MG TABLET PO SCH (10:58)
--- NOTE | 2017-09-02 10:59 | Pulmonology Progress Note ---
Pulmonary - PN: Subj Interval history: Otto Avila, [facility] acting as scribe for Dr. Dayo Cooper Mr. Bowers is a 76-year-old white male who we saw in initial pulmonary consultation 08/28/2017. At that time, our impressions were: 1. Subacute/acute onset of worsening dyspnea on exertion and is associated with a 5 lobe alveolar/interstitial infiltrate. This could be any number of causes that include infections and hypersensitivity reactions. I suspect this will turn down attendant to be amiodarone lung. 2. Mild large airway wheezing. 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 3. History of atrial fib 4. High blood 5. History of hypoxemia with typical O2 sats on room air 91% predating present illness 6. See past history 08/29/2017. The patient was seen today along with Yessi Julio RN. The patient' s chest x-ray today is slightly improved from previous films. He definitely reports that he is breathing better. Sputum Gram stain from yesterday showed many gram-positive cocci in clusters and moderate gram-negative rods. Sputum culture is only growing normal effie at 12 hours. We are going to repeat sputum culture for Gram stain, culture and sensitivity. 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 During the evenings he has had significant shakiness which we feel is most likely secondary to the Solu -Medrol. We are going to decrease his dose to 40 mg IV every 8 hours and follow -up his response. We will repeat a chest x-ray tomorrow. We are also going to repeat a sed rate and C-reactive protein. Note, at admission these were markedly elevated at 92 and 9.22, respectively. Cold agglutinins are negative at 1:2. Legionella and pro-calcitonin are both pending. Doppler venograms done 08/28/2017 showed no evidence of DVT in either lower extremity. ABGs this morning on an FiO2 of 21% showed a pH of 7.420, PCO2 33.4, PO2 63.6, bicarb 22.6, and oxygen saturation 92.0%. Medications have been reviewed. Solu-Medrol decreased as above. Labs been reviewed. No other new labs were drawn today. 08/30/2017. The patient was seen today along with his , female friend, and Yessi Julio RN. Mr. Bowers continues to report improving respiratory status. Chest x-ray today continues to show improvement of his 5 lobe alveolar/ interstitial infiltrate. Sed rate has fallen to 51 and C-reactive protein is fallen to 2.17. We will repeat both of these tomorrow. Pulmonary function tests showed small airways disease with reversible component. Forced vital capacity was 75% of predicted consistent with mild restrictive disease. We suspect that his baseline is approximately 90% of predicted. We have started the patient on duo nebs 4 times daily and as needed. He is already on Singulair which needs to be continued. Tomorrow, we are going to repeat room air blood gases to see if his oxygenation has improved. The patient asked about his elevated white count. We feel that this is almost certainly secondary to the steroids that have been necessary. Medications have been reviewed. We made no changes today other than the addition of DuoNeb's. Labs have been reviewed. White count is 21,100 with 92.1% segs; H&H 12.9/38.8; platelet count 325,000; sed rate 51; C-reactive protein 2.17; creatinine 0.90, BUN 19, electrolytes are normal; fasting lipoprotein profile shows a total cholesterol 146, LDL 100, HDL 41, triglycerides 67 08/31/2017. Patient was seen today along with his and Sarah Jordan RN. Mr. Bowers's chest x-ray continues to improve daily. Pro-calcitonin was normal at less than 0.10 and Legionella was negative. 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 Nonetheless, given his exposure while inpatient, where again continue his antibiotics for the time being. However, his IV is infiltrated so we will change his Levaquin to oral dose and stop the Solu-Medrol and start prednisone 40 mg every 12 hours. He complains of sinus drainage with postnasal drip and this will be treated with Zyrtec 10 mg at bedtime. Medications have been reviewed. Labs been reviewed. White count is 15,800 with 85.3% segs; H&H 13.6/40.2; platelet count 326,000; creatinine 0.90, BUN 16, electrolytes are normal; sed rate has fallen to 42 and C-reactive protein is fallen to 1.57 ABGs this morning on an FiO2 of 21% showed pH of 7.433, PCO2 36.8, PO2 59.2, bicarb 24.8, and oxygen saturation 90.9%. 09/01/2017. The patient was seen today along with his and Sarah Jordan RN. Mr. Bowers continues to improve daily from a pulmonary standpoint. Chest x-ray and ABGs were not done today, but they have been ordered for tomorrow. We have consulted oncology social work to get the patient in nebulizer for home use. He will continue duo nebs 4 times daily and as needed. We are also going to go ahead and start Symbicort 160/4.52 puffs twice daily. Ideally, he would take these doses after a nebulizer treatment. We told the patient that if his chest x-ray and ABGs show more improvement tomorrow, he would most likely be ready for discharge from a pulmonary standpoint. Medications have been reviewed. Labs been reviewed. White count is 16,800 with 80.4% segs; H&H 13.1/38.6; platelet count 310,000; creatinine 0.90, BUN 18, electrolytes are normal 09/02/2017. Patient was seen today along with his and Sarah Jordan RN. The patient's chest x-ray continues to make marked improvements daily. Yesterday when the patient ambulated without oxygen desatted into the upper 80s. ABGs were drawn this morning, but they were not done on room air as ordered. As noted on pulmonary function tests, the patient has asthma. We have arranged for home nebulizer for use with DuoNeb's 4 times daily. He is also been started on Symbicort. He needs to continue these at discharge. He needs to continue his other pulmonary medications on discharge as well. We would like to continue him on prednisone 20 mg twice daily until his return appointment with Dr. Cooper in approximately 1 month. At that time, we will check a chest x-ray, complete pulmonary function test with pre-and postbronchodilator spirometry, sed rate, and C-reactive protein. Given his significant oxygen desaturations as noted on ABGs done 08/31/2017 with a PO2 on room air of 59.2, we will arrange for home oxygen. Medications have been reviewed. We made no changes today. Labs been reviewed. White count is 14,300 with 79.1% segs; H&H 13.4/39.7; platelet count 292,000; sed rate has now normalized to 17; C-reactive protein is near normal at 0.87; creatinine 0.90, BUN 18, electrolytes are normal ABGs this morning on an FiO2 of 28% show pH is 7.447, PCO2 39.5, PO2 81.3, bicarb 27.2, oxygen saturation 96.8% Exam (Progress Note) - Constitutional Vitals: Period Temp Pulse Resp BP Sys/Leone Pulse Ox Last 24 Hr 97.9 F-98.5 F 72-97 15-20 137-146/80-95 88-99 Exam: Chest with slight prolongation of expiration and wheeze free Heart no gallop Abdomen is obese, but nontender and nondistended; bowel sounds are positive 4 Lower extremities with nothing to suggest acute deep venous thrombophlebitis Psychiatric oriented 3; appreciative of his care Neurologic long-term motor function is intact Plan: We have arranged for the patient to follow-up with Dr. Mcnair in approximately 1 month with chest x-ray, complete pulmonary function test, sed rate and C-reactive protein. He needs to continue his present pulmonary medications including duo nebs 4 times daily, Singulair 10 mg daily, Symbicort 160/4.5 2 puffs twice daily, and prednisone 20 mg twice daily until his return appointment. We have arranged for nebulizer for home use and home oxygen. Your plans for discharge are noted. We will sign off. Please reconsult as needed. Results - Labs CBC & BMP: 09/02/17 02:19 09/02/17 02:19 Specialty Discharge - Follow Up or Referrals Follow up with: Nakul Higuera MD [Physician] - 09/15/17 12:50 pm (3-4 weeks. One week prior to visit: echo at [facility] RE: cardiac evaluation ECHO IS ON 09/08/2017@2:00) Sam Guerrero DO [Primary Care Provider] - 1 Week (TCM 1 week) Dayo Cooper MD [Physician] - 1 Month (Appt with DR. COOPER (okay per [place]) in one month with CXR, complete PFTs with pre and post bronchodilator spirometry, Sed rate, and CRP. appointment for PFTs october 04 at 10:00. September 12:00 for lab and chest x ray, then see dr Cooper at 1:20 .)
[2017-09-02 11:38] VITALS: BP 148/90
--- NOTE | 2017-09-02 12:27 | Discharge Summary ---
Hospital Course - Hospital Course Hospital Course: Patient came to the hospital with increasing shortness of breath. I had seen him prior to admission about 4 days earlier and he got no better with medications. It was felt at that time he should come in but he opted to try outpatient therapy. Nonetheless chest x-ray did show interstitial infiltrate there was concern that he had some amiodarone toxicity which proved to be the case along with possible atypical pneumonia. He required oxygen and I did get pulmonary consult on him and multiple therapies were performed, please see hospital course. We did ultimately turn him around he was breathing easier with steroids and antibiotics. Of course the amiodarone was stopped. Cardiology saw him and is as well and he was doing much better on discharge and is to follow-up very closely with me as well as the other specialties. Diagnosis - Discharge Diagnosis (1) Amiodarone pulmonary toxicity Status: Acute (2) Atrial fibrillation and flutter Status: Chronic Specialty Discharge - Follow Up or Referrals Follow up with: Nakul Higuera MD [Physician] - 09/15/17 12:50 pm (3-4 weeks. One week prior to visit: echo at [facility] RE: cardiac evaluation ECHO IS ON 09/08/2017@2:00) Sam Guerrero DO [Primary Care Provider] - 1 Week (TCM 1 week) Dayo Cooper MD [Physician] - 1 Month (Appt with DR. COOPER (okay per Otto) in one month with CXR, complete PFTs with pre and post bronchodilator spirometry, Sed rate, and CRP. appointment for PFTs october 04 at 10:00. September 12:00 for lab and chest x ray, then see dr Cooper at 1:20 .) Discharge Plan - Discharge Data Disposition: Disch To Home/Self Care Condition at Discharge: Stable Discharge Diet: advance to your usual diet Activity: increase activity as tolerated Hygiene: no restrictions Weight Bearing at Discharge: weight bear as tolerated Driving: no restrictions Contact your physician if you experience:: fever over 101, Shortness of breath - Discharge Medications New Albuterol/Ipratropium Neb [Duoneb] 3 ml RESP TX RT Q6H #3 packet Ascorbic Acid Tab [Vitamin C Tab] 1,000 mg PO DAILY tablet Budesonide/Formoterol 160-4.5 [Symbicort 160-4.5] 2 puff INH BID #1 inhaler Carvedilol [Coreg] 6.25 mg PO BID #60 tablet Cyanocobalamin Tab [Vitamin B12 Tab] 2,500 mcg PO BEDTIME tablet diphenhydrAMINE CAP [Benadryl Cap] 25 mg PO BEDTIME capsule Montelukast Tab [Singulair Tab] 10 mg PO DAILY #30 tablet Multivitamin (Ocuvite) [Ocuvite] 1 tablet PO DAILY tablet [place] 3 Acid Ethyl Esters [Lovaza] 2 gm PO DAILY capsule Potassium Gluconate 1,000 mg PO DAILY tablet Rivaroxaban [Xarelto] 20 mg PO DAILY W/BREAKFAST tablet Cetirizine Tab [ZyrTEC Tab] 10 mg PO BEDTIME tablet predniSONE TAB [PredniSONE] 10 mg PO DIRECTED #30 tablet Continue Terazosin HCl 2 mg PO BEDTIME Rivaroxaban [Xarelto] 20 mg PO BEDTIME Escitalopram [Lexapro] 10 mg PO BEDTIME Losartan Potassium 100 mg PO DAILY Tiotropium [place] [Spiriva Respimat] 2 puffs INH BEDTIME Discontinued Furosemide 20 mg PO DAILY Amiodarone Tab [Cordarone Tab] 200 mg PO DAILY Cefdinir [Cefdinir] 300 mg PO [id number] - Follow Up or Referral Follow Up: Nakul Higuera MD [Physician] - 09/15/17 12:50 pm (3-4 weeks. One week prior to visit: echo at [facility] RE: cardiac evaluation ECHO IS ON 09/08/2017@2:00) Dayo Cooper MD [Physician] - 1 Month (Appt with DR. COOPER (okay per Otto) in one month with CXR, complete PFTs with pre and post bronchodilator spirometry, Sed rate, and CRP. appointment for PFTs october 04 at 10:00. September 12:00 for lab and chest x ray, then see dr Cooper at 1:20 .) Sam Guerrero DO [Primary Care Provider] - 1 Week ([facility] 1 week) - Forms/Instructions Instructions: Prednisone (By mouth), Carvedilol (By mouth), Ipratropium/ Albuterol (By breathing), Montelukast (By mouth), Budesonide/Formoterol (By breathing), Atrial Fibrillation (DC), Viral Pneumonia (DC), Using Oxygen at Home (DC) Exam - Constitutional Vitals: Period Temp Pulse Resp BP Sys/Leone Pulse Ox Last 24 Hr 97.7 F-98.5 F 72-97 15-24 137-148/80-95 85-99 Discharge Results Procedures and tests throughout hospitalization: Pending Orders 08/29/17 10:35 Sputum Culture and Gram Stain Routine Labs on day of discharge: Labs from last 24 hours 09/02/17 09/02/17 09/02/17 04:00 02:19 02:19 WBC 14.3 H RBC 4.43 Hgb 13.4 L Hct 39.7 L MCV 89.6 MCH 30 MCHC 33.8 RDW 12.8 Plt Count 292 MPV 9.4 L Neut % (Auto) 79.1 H Lymph % (Auto) 5.9 L [place] % (Auto) 4.3 Eos % (Auto) 0.1 Baso % (Auto) 0.1 Neut # (Auto) 11.3 H Lymph # (Auto) 0.8 L [place] # (Auto) 0.6 Eos # (Auto) 0.0 Baso # (Auto) 0.0 Total Counted 100 Immature Gran % 10.5 Nucleated RBC % 0.1 Immature Gran # 1.50 Segmented Neutrophils 87 H Band Neutrophils 2 Lymphocytes 7 L Monocytes 4 Nucleated RBCs # 0.02 Platelet Estimate Adequate Giant Platelets Few Immature Plt Fraction 0.0 Hypochromasia 1+ Microcytosis Slight ESR [place] ABG pH 7.447 ABG pCO2 39.5 ABG pO2 81.3 ABG HCO3 27.2 H ABG Total CO2 23.6 ABG O2 Saturation 96.8 ABG Base Excess 3.1 H FiO2 28.00 Sodium 141 Potassium 3.8 Chloride 102 Carbon Dioxide 28 Anion Gap 14.8 BUN 18 Creatinine 0.90 GFR Calculation 104 BUN/Creatinine Ratio 20.00 Glucose 125 H Calculated Osmolality 283.3 Calcium 8.5 Magnesium 2.4 C-Reactive Protein 09/02/17 09/02/17 02:19 02:19 WBC RBC Hgb Hct MCV MCH MCHC RDW Plt Count MPV Neut % (Auto) Lymph % (Auto) [place] % (Auto) Eos % (Auto) Baso % (Auto) Neut # (Auto) Lymph # (Auto) [place] # (Auto) Eos # (Auto) Baso # (Auto) Total Counted Immature Gran % Nucleated RBC % Immature Gran # Segmented Neutrophils Band Neutrophils Lymphocytes Monocytes Nucleated RBCs # Platelet Estimate Giant Platelets Immature Plt Fraction Hypochromasia Microcytosis ESR [place] 17 ABG pH ABG pCO2 ABG pO2 ABG HCO3 ABG Total CO2 ABG O2 Saturation ABG Base Excess FiO2 Sodium Potassium Chloride Carbon Dioxide Anion Gap BUN Creatinine GFR Calculation BUN/Creatinine Ratio Glucose Calculated Osmolality Calcium Magnesium C-Reactive Protein 0.87 H DS: Provider Date of admission: 08/27/17 13:02 Primary care physician: Sam Guerrero DO Attending physician on admission: Sam Guerrero DO Consults: 08/27/17 13:02 Consult to Case Mgmt/Social Srvs [CONS] Routine Reason for Case Mgmt/Social Srvs: Discharge Planning Consult to Physician [CONS] Routine Comment: Consulting Provider: Dayo Cooper Person Notified: Dr Cooper Date Notified: 08/27/17 Time Notified: 15:15 08/27/17 14:47 Consult to Physician [CONS] Routine Comment: Afib, recently stopped Amiodarone Consulting Provider: Gulshan Guzmán Person Notified: Avani Date Notified: 08/27/17 Time Notified: 15:11 09/01/17 10:57 Consult to Case Mgmt/Social Srvs [CONS] Routine Reason for Case Mgmt/Social Srvs: Equipment Consult Comment: nebulizer for home use 09/02/17 10:33 Consult to Case Mgmt/Social Srvs [CONS] Routine Reason for Case Mgmt/Social Srvs: Equipment Consult Comment: O2 at 2 LPM for home use Discharging clinician: Sam Guerrero DO
== END 2017-09-02 16:52 | disposition home or self-care (01) | DRG 206 ==
LOC: N.ED 11:15 → N.EDINP 13:02 → N.5E 14:39
PROVIDERS: ADMIT Family Medicine; ATTEND Family Medicine

== ENCOUNTER 2022-10-06 09:12 | Inpatient (IN) ==
[2022-10-06] MEDS ORDERED: ACETAMINOPHEN 325 MG TABLET PO PRN (09:34)
[2022-10-06] MEDS ORDERED: ONDANSETRON 4 MG/2 ML VIAL IV PRN (09:34)
[2022-10-06] MEDS ORDERED: LORATADINE 10 MG TABLET PO PRN (09:42)
[2022-10-06 10:22] LABS: Basophils # 0.1 10*3/uL (0.0-0.2); Basophils % 0.7 % (0.0-0.8); Eosinophils # 0.1 10*3/uL (0.0-0.87); Eosinophils % 0.9 % (0.00-10.9); Hematocrit 45.9 VOL% (42.0-52.0); Hemoglobin 14.8 GM/DL (14.0-18.0); Immature Granulocytes % 3.1 %; Lymphocytes % 6.3 % (21.2-54.2); Mean Corpuscular HGB Conc 32.2 GM/DL (32-36); Mean Corpuscular Volume 96.2 FL (87-102); Mean Platelet Volume 8.6 FL (9.6-12.0); Monocytes # 1.1 10*3/uL (0.11-0.8); Monocytes % 6.5 % (1.7-12.7); Neutrophils % 82.5 % (38.7-73.9); Platelet Count 233 T/CUMM (130-400); Red Blood Count 4.77 MC/CUMM (3.8-5.5); Red Cell Distribution Width 13.6 % (9.3-17.3); White Blood Count 16.3 T/CUMM (4-12)
[2022-10-06 10:44] LABS: Albumin 3.3 G/DL (3.4-5.0); Bilirubin,Total 0.6 MG/DL (0.20-1.00); Calcium 8.8 MG/DL (8.5-10.1); Osmolality,Calculated 288.3 MOS/KG (273-304); Potassium 4.1 MMOL/L (3.5-5.1); Total Protein 6.4 G/DL (6.4-8.2)
[2022-10-06 10:48] LABS: Uric Acid 5.2 MG/DL (3.5-7.2)
[2022-10-06] MEDS: KETOROLAC 15 MG/1 ML VIAL IV SCH ×2 (13:24→21:04)
[2022-10-06] MEDS: SODIUM CHLORIDE 0.9% 1,000 ML IV SCH (13:24)
[2022-10-06] MEDS: methylPREDNISolone SOD SUC 125 MG/2 ML VIAL IV SCH ×2 (13:24→21:06)
[2022-10-06] MEDS: VANCOMYCIN INJ 1,500 MG in SODIUM CHLORIDE 0.9% 500 ML IV SCH ×2 (13:25→23:43)
[2022-10-06] MEDS: RIVAROXABAN 20 MG TABLET PO SCH (21:05)
[2022-10-06] MEDS: ESCITALOPRAM 10 MG TABLET PO SCH (21:06)
[2022-10-06] MEDS: HydrOXYzine PAMOATE 25 MG CAPSULE PO SCH (21:06)
[2022-10-06] MEDS: DOCUSATE SODIUM 100 MG CAPSULE PO PRN (21:06)
[2022-10-06] MEDS: carvediloL 3.125 MG TABLET PO SCH (21:06)
[2022-10-07] MEDS: methylPREDNISolone SOD SUC 125 MG/2 ML VIAL IV SCH ×3 (04:21→21:15)
[2022-10-07] MEDS: SODIUM CHLORIDE 0.9% 1,000 ML IV SCH ×2 (05:45→09:07)
[2022-10-07] MEDS: DOCUSATE SODIUM 100 MG CAPSULE PO PRN (09:04)
[2022-10-07] MEDS: PANTOPRAZOLE 40 MG TABLET PO SCH (09:04)
[2022-10-07] MEDS: LORATADINE 10 MG TABLET PO SCH (09:04)
[2022-10-07] MEDS: carvediloL 3.125 MG TABLET PO SCH ×3 (09:05→16:30)
[2022-10-07] MEDS: FUROSEMIDE 20 MG TABLET PO SCH (09:05)
[2022-10-07] MEDS: LOSARTAN 50 MG TABLET PO SCH (09:06)
[2022-10-07] MEDS: KETOROLAC 15 MG/1 ML VIAL IV SCH ×2 (09:06→21:17)
[2022-10-07] MEDS: POTASSIUM CHLORIDE 10 MEQ TABLET PO SCH (09:09)
[2022-10-07] MEDS: VANCOMYCIN INJ 1,500 MG in SODIUM CHLORIDE 0.9% 500 ML IV SCH ×2 (14:09→23:14)
[2022-10-07] MEDS: ESCITALOPRAM 10 MG TABLET PO SCH (21:15)
[2022-10-07] MEDS: SIMVASTATIN 10 MG TABLET PO SCH (21:16)
[2022-10-07] MEDS: HydrOXYzine PAMOATE 25 MG CAPSULE PO SCH (21:16)
[2022-10-07] MEDS: RIVAROXABAN 20 MG TABLET PO SCH (21:22)
[2022-10-08] MEDS: SODIUM CHLORIDE 0.9% 1,000 ML IV SCH (04:57)
[2022-10-08] MEDS: methylPREDNISolone SOD SUC 125 MG/2 ML VIAL IV SCH (04:59)
[2022-10-08 05:21] LABS: Basophils # 0.1 10*3/uL (0.0-0.2); Basophils % 0.3 % (0.0-0.8); Hematocrit 40.6 VOL% (42.0-52.0); Hemoglobin 13.4 GM/DL (14.0-18.0); Immature Granulocytes % 2.6 %; Immature Granulocytes Absolute 0.47 #; Lymphocytes # 0.8 10*3/uL (1.4-4.0); Lymphocytes % 4.2 % (21.2-54.2); Mean Corpuscular Volume 95.3 FL (87-102); Mean Platelet Volume 9.1 FL (9.6-12.0); Monocytes # 0.4 10*3/uL (0.11-0.8); Monocytes % 2.4 % (1.7-12.7); Neutrophils % 90.5 % (38.7-73.9); Platelet Count 210 T/CUMM (130-400); Red Blood Count 4.26 MC/CUMM (3.8-5.5); Red Cell Distribution Width 13.7 % (9.3-17.3); White Blood Count 18.3 T/CUMM (4-12)
[2022-10-08 05:36] LABS: Calcium 8.8 MG/DL (8.5-10.1); Potassium 4.4 MMOL/L (3.5-5.1)
[2022-10-08 06:04] LABS: Lymphocytes 6 % (20-55); Platelet Estimate Adequate; Total Cells Counted 100
[2022-10-08] MEDS: PANTOPRAZOLE 40 MG TABLET PO SCH (08:02)
[2022-10-08] MEDS: carvediloL 3.125 MG TABLET PO SCH ×2 (08:02→18:31)
[2022-10-08] MEDS: LOSARTAN 50 MG TABLET PO SCH (08:03)
[2022-10-08] MEDS: LORATADINE 10 MG TABLET PO SCH (08:03)
[2022-10-08] MEDS: POTASSIUM CHLORIDE 10 MEQ TABLET PO SCH (08:03)
[2022-10-08] MEDS: FUROSEMIDE 20 MG TABLET PO SCH (08:04)
[2022-10-08] MEDS: KETOROLAC 15 MG/1 ML VIAL IV SCH ×2 (09:06→20:00)
[2022-10-08] MEDS ORDERED: cloNIDine 0.1 MG TABLET PO ONE (10:20)
[2022-10-08] MEDS: VANCOMYCIN INJ 1,500 MG in SODIUM CHLORIDE 0.9% 500 ML IV SCH (15:04)
[2022-10-08] MEDS: methylPREDNISolone SOD SUC 40 MG/1 ML VIAL IV SCH (18:31)
[2022-10-08] MEDS: cloNIDine 0.1 MG TABLET PO PRN (18:38)
[2022-10-08] MEDS: SIMVASTATIN 10 MG TABLET PO SCH (20:00)
[2022-10-08] MEDS: RIVAROXABAN 20 MG TABLET PO SCH (20:00)
[2022-10-08] MEDS: HydrOXYzine PAMOATE 25 MG CAPSULE PO SCH (20:00)
[2022-10-08] MEDS: ESCITALOPRAM 10 MG TABLET PO SCH (20:00)
[2022-10-09] MEDS: VANCOMYCIN INJ 1,500 MG in SODIUM CHLORIDE 0.9% 500 ML IV SCH (00:10)
[2022-10-09] MEDS: SODIUM CHLORIDE 0.9% 1,000 ML IV SCH (00:10)
[2022-10-09] MEDS: cloNIDine 0.1 MG TABLET PO PRN (04:00)
[2022-10-09] MEDS: methylPREDNISolone SOD SUC 40 MG/1 ML VIAL IV SCH (04:00)
[2022-10-09 07:01] LABS: Basophils # 0.1 10*3/uL (0.0-0.2); Basophils % 0.3 % (0.0-0.8); Hematocrit 41.9 VOL% (42.0-52.0); Hemoglobin 13.3 GM/DL (14.0-18.0); Immature Granulocytes % 2.9 %; Immature Granulocytes Absolute 0.49 #; Lymphocytes # 0.6 10*3/uL (1.4-4.0); Lymphocytes % 3.7 % (21.2-54.2); Mean Corpuscular HGB Conc 31.7 GM/DL (32-36); Mean Corpuscular Volume 95.7 FL (87-102); Mean Platelet Volume 8.8 FL (9.6-12.0); Monocytes # 0.4 10*3/uL (0.11-0.8); Monocytes % 2.2 % (1.7-12.7); Neutrophils % 90.9 % (38.7-73.9); Platelet Count 216 T/CUMM (130-400); Red Blood Count 4.38 MC/CUMM (3.8-5.5); Red Cell Distribution Width 13.5 % (9.3-17.3); White Blood Count 17.2 T/CUMM (4-12)
[2022-10-09] MEDS ORDERED: FUROSEMIDE 40 MG/4 ML VIAL IV ONE (07:24)
[2022-10-09 07:35] LABS: Lymphocytes 3 % (20-55); Platelet Estimate Adequate; Total Cells Counted 100
[2022-10-09] MEDS: KETOROLAC 15 MG/1 ML VIAL IV SCH ×2 (08:54→11:33)
[2022-10-09] MEDS: POTASSIUM CHLORIDE 10 MEQ TABLET PO SCH (08:56)
[2022-10-09] MEDS: carvediloL 3.125 MG TABLET PO SCH (08:57)
[2022-10-09] MEDS: LORATADINE 10 MG TABLET PO SCH (09:00)
[2022-10-09] MEDS ORDERED: LOSARTAN 50 MG TABLET PO SCH (09:00)
[2022-10-09] MEDS: PANTOPRAZOLE 40 MG TABLET PO SCH (09:00)
[2022-10-09] MEDS: FUROSEMIDE 20 MG TABLET PO SCH (09:00)
[2022-10-09] MEDS ORDERED: VANCOMYCIN INJ 1,500 MG in SODIUM CHLORIDE 0.9% 500 ML IV SCH (12:00)
[2022-10-09 12:38] VITALS: BP 122/88
== END 2022-10-09 14:29 | disposition home health service (06) | DRG 603 ==
LOC: N.2W
PROVIDERS: ADMIT Family Medicine; ATTEND Family Medicine

== ENCOUNTER 2022-10-10 12:03 | Inpatient (IN) ==
[2022-10-10] MEDS ORDERED: VANCOMYCIN INJ 1,000 MG in SODIUM CHLORIDE 0.9% 250 ML IV STA (12:47)
[2022-10-10 13:06] LABS: Basophils # 0.1 10*3/uL (0.0-0.2); Basophils % 0.5 % (0.0-0.8); Eosinophils # 0.1 10*3/uL (0.0-0.87); Eosinophils % 0.7 % (0.00-10.9); Hematocrit 46.1 VOL% (42.0-52.0); Hemoglobin 15.1 GM/DL (14.0-18.0); Immature Granulocytes % 3.1 %; Immature Granulocytes Absolute 0.47 #; Lymphocytes # 0.8 10*3/uL (1.4-4.0); Lymphocytes % 5.1 % (21.2-54.2); Mean Corpuscular HGB Conc 32.8 GM/DL (32-36); Mean Corpuscular Volume 94.3 FL (87-102); Mean Platelet Volume 8.5 FL (9.6-12.0); Monocytes # 0.8 10*3/uL (0.11-0.8); Monocytes % 5.2 % (1.7-12.7); Neutrophils % 85.4 % (38.7-73.9); Platelet Count 199 T/CUMM (130-400); Red Blood Count 4.89 MC/CUMM (3.8-5.5); Red Cell Distribution Width 13.7 % (9.3-17.3); White Blood Count 15.3 T/CUMM (4-12)
[2022-10-10 13:25] LABS: Calcium 8.9 MG/DL (8.5-10.1); Osmolality,Calculated 282.5 MOS/KG (273-304); Potassium 3.9 MMOL/L (3.5-5.1)
[2022-10-10] MEDS ORDERED: GLUCAGON 1 MG VIAL IM PRN (15:26)
[2022-10-10] MEDS ORDERED: MORPHINE 2 MG/1 ML SYRINGE IV PRN (15:26)
[2022-10-10] MEDS ORDERED: ONDANSETRON 4 MG/2 ML VIAL IV PRN (15:26)
[2022-10-10] MEDS ORDERED: hydrALAZINE 20 MG/1 ML VIAL ONE (15:30)
[2022-10-10] MEDS ORDERED: DEXTROSE 10% 250 ML BAG IV PRN (15:34)
[2022-10-10] MEDS ORDERED: hydrALAZINE 20 MG/1 ML VIAL IV STA (16:04)
[2022-10-10] MEDS: INSULIN REGULAR 100 UNIT/ML SUBCUT SCH ×2 (17:17→20:47)
[2022-10-10] MEDS: ESCITALOPRAM 10 MG TABLET PO SCH (20:44)
[2022-10-10] MEDS: diphenhydrAMINE CAP 25 MG CAPSULE PO SCH (20:44)
[2022-10-10] MEDS: DOCUSATE SODIUM 100 MG CAPSULE PO SCH (20:44)
[2022-10-10] MEDS: carvediloL 3.125 MG TABLET PO SCH (20:44)
[2022-10-10] MEDS: RIVAROXABAN 20 MG TABLET PO SCH (20:44)
[2022-10-10] MEDS ORDERED: VANCOMYCIN INJ 1,000 MG in SODIUM CHLORIDE 0.9% 250 ML IV SCH (22:00)
[2022-10-11] MEDS: ACETAMINOPHEN 325 MG TABLET PO PRN (03:24)
[2022-10-11] MEDS: VANCOMYCIN INJ 1,500 MG in SODIUM CHLORIDE 0.9% 500 ML IV SCH ×2 (03:25→14:45)
[2022-10-11] MEDS: INSULIN REGULAR 100 UNIT/ML SUBCUT SCH ×4 (08:06→20:57)
[2022-10-11 08:28] LABS: Basophils # 0.1 10*3/uL (0.0-0.2); Basophils % 0.5 % (0.0-0.8); Eosinophils # 0.1 10*3/uL (0.0-0.87); Eosinophils % 0.9 % (0.00-10.9); Hematocrit 45.4 VOL% (42.0-52.0); Hemoglobin 14.8 GM/DL (14.0-18.0); Immature Granulocytes % 2.4 %; Immature Granulocytes Absolute 0.39 #; Lymphocytes % 6.4 % (21.2-54.2); Mean Corpuscular HGB Conc 32.6 GM/DL (32-36); Mean Corpuscular Volume 94.6 FL (87-102); Mean Platelet Volume 8.8 FL (9.6-12.0); Monocytes # 0.7 10*3/uL (0.11-0.8); Monocytes % 4.2 % (1.7-12.7); Neutrophils % 85.6 % (38.7-73.9); Platelet Count 196 T/CUMM (130-400); Red Cell Distribution Width 13.8 % (9.3-17.3); White Blood Count 16.1 T/CUMM (4-12)
[2022-10-11] MEDS ORDERED: LOSARTAN 50 MG TABLET PO SCH (09:00)
[2022-10-11 09:08] LABS: Albumin 2.6 G/DL (3.4-5.0); Bilirubin,Total 1.3 MG/DL (0.20-1.00); Calcium 8.8 MG/DL (8.5-10.1); Osmolality,Calculated 276.8 MOS/KG (273-304); Potassium 3.6 MMOL/L (3.5-5.1); Total Protein 5.8 G/DL (6.4-8.2)
[2022-10-11] MEDS: FUROSEMIDE 20 MG TABLET PO SCH (09:08)
[2022-10-11] MEDS: CHOLECALCIFEROL 5,000 UNIT TABLET PO SCH (09:08)
[2022-10-11] MEDS: carvediloL 3.125 MG TABLET PO SCH ×2 (09:08→20:56)
[2022-10-11] MEDS: LOSARTAN 50 MG TABLET PO SCH (09:08)
[2022-10-11] MEDS: TERAZOSIN 1 MG CAPSULE PO SCH (09:08)
[2022-10-11] MEDS: PANTOPRAZOLE 40 MG TABLET PO SCH (09:08)
[2022-10-11] MEDS: POTASSIUM CHLORIDE 10 MEQ TABLET PO SCH (09:08)
[2022-10-11 09:31] LABS: Sedimentation Rate-Westergren 30 MM/HR (0-20)
[2022-10-11] MEDS: DOCUSATE SODIUM 100 MG CAPSULE PO SCH ×2 (10:16→20:56)
[2022-10-11] MEDS: ESCITALOPRAM 10 MG TABLET PO SCH (20:56)
[2022-10-11] MEDS: RIVAROXABAN 20 MG TABLET PO SCH (20:56)
[2022-10-11] MEDS: SIMVASTATIN 10 MG TABLET PO SCH (20:56)
[2022-10-11] MEDS: diphenhydrAMINE CAP 25 MG CAPSULE PO SCH (20:56)
[2022-10-12] MEDS: VANCOMYCIN INJ 1,500 MG in SODIUM CHLORIDE 0.9% 500 ML IV SCH (03:42)
[2022-10-12] MEDS: cloNIDine 0.1 MG TABLET PO PRN (04:06)
[2022-10-12 07:59] LABS: Basophils # 0.1 10*3/uL (0.0-0.2); Basophils % 0.5 % (0.0-0.8); Eosinophils # 0.2 10*3/uL (0.0-0.87); Eosinophils % 1.7 % (0.00-10.9); Hematocrit 37.2 VOL% (42.0-52.0); Immature Granulocytes % 3.2 %; Immature Granulocytes Absolute 0.37 #; Lymphocytes # 0.9 10*3/uL (1.4-4.0); Lymphocytes % 7.3 % (21.2-54.2); Mean Corpuscular HGB Conc 31.7 GM/DL (32-36); Mean Corpuscular Volume 96.4 FL (87-102); Mean Platelet Volume 9.2 FL (9.6-12.0); Monocytes # 0.7 10*3/uL (0.11-0.8); Monocytes % 5.6 % (1.7-12.7); Neutrophils % 81.7 % (38.7-73.9); Platelet Count 173 T/CUMM (130-400); Red Blood Count 3.86 MC/CUMM (3.8-5.5); Red Cell Distribution Width 13.9 % (9.3-17.3); White Blood Count 11.6 T/CUMM (4-12)
[2022-10-12 08:08] LABS: Hemoglobin 11.8 GM/DL (14.0-18.0)
[2022-10-12] MEDS: INSULIN REGULAR 100 UNIT/ML SUBCUT SCH (08:14)
[2022-10-12 08:21] LABS: Calcium 7.2 MG/DL (8.5-10.1); Osmolality,Calculated 284.1 MOS/KG (273-304); Potassium 3.4 MMOL/L (3.5-5.1)
[2022-10-12] MEDS: DOCUSATE SODIUM 100 MG CAPSULE PO SCH ×2 (08:29→20:19)
[2022-10-12] MEDS: LOSARTAN 50 MG TABLET PO SCH (08:29)
[2022-10-12] MEDS: CHOLECALCIFEROL 5,000 UNIT TABLET PO SCH (08:29)
[2022-10-12] MEDS: POTASSIUM CHLORIDE 10 MEQ TABLET PO SCH (08:30)
[2022-10-12] MEDS: FUROSEMIDE 20 MG TABLET PO SCH (08:30)
[2022-10-12] MEDS: PANTOPRAZOLE 40 MG TABLET PO SCH (08:30)
[2022-10-12] MEDS: TERAZOSIN 1 MG CAPSULE PO SCH (08:30)
[2022-10-12] MEDS: carvediloL 3.125 MG TABLET PO SCH ×2 (08:33→20:20)
[2022-10-12] MEDS: cefTRIAXone 2,000 MG in SODIUM CHLORIDE 0.9% 100 ML IV SCH (08:43)
[2022-10-12] MEDS: CLINDAMYCIN INJ 900 MG/50 ML PREMIX IV SCH ×2 (10:29→20:19)
[2022-10-12] MEDS ORDERED: POTASSIUM CHLORIDE 20 MEQ TABLET PO ONE (11:00)
[2022-10-12] MEDS: SIMVASTATIN 10 MG TABLET PO SCH (20:19)
[2022-10-12] MEDS: diphenhydrAMINE CAP 25 MG CAPSULE PO SCH (20:19)
[2022-10-12] MEDS: RIVAROXABAN 20 MG TABLET PO SCH (20:19)
[2022-10-12] MEDS: ESCITALOPRAM 10 MG TABLET PO SCH (20:20)
[2022-10-13] MEDS: ACETAMINOPHEN 325 MG TABLET PO PRN (00:21)
[2022-10-13] MEDS: CLINDAMYCIN INJ 900 MG/50 ML PREMIX IV SCH ×3 (05:11→21:16)
[2022-10-13] MEDS: DOCUSATE SODIUM 100 MG CAPSULE PO SCH ×2 (09:41→21:11)
[2022-10-13] MEDS: carvediloL 3.125 MG TABLET PO SCH ×2 (09:42→21:11)
[2022-10-13] MEDS: LOSARTAN 50 MG TABLET PO SCH (09:42)
[2022-10-13] MEDS: TERAZOSIN 1 MG CAPSULE PO SCH (09:43)
[2022-10-13] MEDS: POTASSIUM CHLORIDE 10 MEQ TABLET PO SCH (09:43)
[2022-10-13] MEDS: PANTOPRAZOLE 40 MG TABLET PO SCH (09:44)
[2022-10-13] MEDS: FUROSEMIDE 20 MG TABLET PO SCH (09:44)
[2022-10-13] MEDS: CHOLECALCIFEROL 5,000 UNIT TABLET PO SCH (09:45)
[2022-10-13] MEDS: cefTRIAXone 2,000 MG in SODIUM CHLORIDE 0.9% 100 ML IV SCH (09:49)
[2022-10-13] MEDS: RIVAROXABAN 20 MG TABLET PO SCH (21:11)
[2022-10-13] MEDS: ESCITALOPRAM 10 MG TABLET PO SCH (21:11)
[2022-10-13] MEDS: ZALEPLON 5 MG CAPSULE PO SCH (21:11)
[2022-10-13] MEDS: SIMVASTATIN 10 MG TABLET PO SCH (21:11)
[2022-10-13] MEDS: diphenhydrAMINE CAP 25 MG CAPSULE PO SCH (21:11)
[2022-10-14] MEDS: CLINDAMYCIN INJ 900 MG/50 ML PREMIX IV SCH ×3 (05:02→22:25)
[2022-10-14 05:08] LABS: Basophils # 0.1 10*3/uL (0.0-0.2); Basophils % 0.6 % (0.0-0.8); Eosinophils # 0.3 10*3/uL (0.0-0.87); Eosinophils % 2.9 % (0.00-10.9); Hemoglobin 12.4 GM/DL (14.0-18.0); Immature Granulocytes % 2.8 %; Immature Granulocytes Absolute 0.26 #; Lymphocytes # 0.9 10*3/uL (1.4-4.0); Lymphocytes % 9.8 % (21.2-54.2); Mean Corpuscular HGB Conc 32.6 GM/DL (32-36); Mean Corpuscular Volume 94.3 FL (87-102); Mean Platelet Volume 9.4 FL (9.6-12.0); Monocytes # 0.9 10*3/uL (0.11-0.8); Monocytes % 9.5 % (1.7-12.7); Neutrophils % 74.4 % (38.7-73.9); Platelet Count 197 T/CUMM (130-400); Red Blood Count 4.03 MC/CUMM (3.8-5.5); Red Cell Distribution Width 13.6 % (9.3-17.3); White Blood Count 9.3 T/CUMM (4-12)
[2022-10-14 05:29] LABS: Calcium 8.3 MG/DL (8.5-10.1); Osmolality,Calculated 279.4 MOS/KG (273-304); Potassium 4.1 MMOL/L (3.5-5.1)
[2022-10-14] MEDS: cefTRIAXone 2,000 MG in SODIUM CHLORIDE 0.9% 100 ML IV SCH (08:47)
[2022-10-14] MEDS: LOSARTAN 50 MG TABLET PO SCH (08:48)
[2022-10-14] MEDS: TERAZOSIN 1 MG CAPSULE PO SCH (08:48)
[2022-10-14] MEDS: DOCUSATE SODIUM 100 MG CAPSULE PO SCH ×2 (08:49→22:25)
[2022-10-14] MEDS: CHOLECALCIFEROL 5,000 UNIT TABLET PO SCH (08:49)
[2022-10-14] MEDS: PANTOPRAZOLE 40 MG TABLET PO SCH (08:49)
[2022-10-14] MEDS: POTASSIUM CHLORIDE 10 MEQ TABLET PO SCH (08:49)
[2022-10-14] MEDS: carvediloL 3.125 MG TABLET PO SCH ×2 (08:49→22:25)
[2022-10-14] MEDS: FUROSEMIDE 20 MG TABLET PO SCH (08:50)
[2022-10-14] MEDS ORDERED: methylPREDNISolone SOD SUC 125 MG/2 ML VIAL IV ONE (09:00)
[2022-10-14] MEDS: diphenhydrAMINE CAP 25 MG CAPSULE PO SCH (22:25)
[2022-10-14] MEDS: ESCITALOPRAM 10 MG TABLET PO SCH (22:25)
[2022-10-14] MEDS: RIVAROXABAN 20 MG TABLET PO SCH (22:25)
[2022-10-14] MEDS: ZALEPLON 5 MG CAPSULE PO SCH (22:25)
[2022-10-14] MEDS: SIMVASTATIN 10 MG TABLET PO SCH (22:25)
[2022-10-15] MEDS: CLINDAMYCIN INJ 900 MG/50 ML PREMIX IV SCH ×3 (05:23→21:03)
[2022-10-15] MEDS: cefTRIAXone 2,000 MG in SODIUM CHLORIDE 0.9% 100 ML IV SCH (08:54)
[2022-10-15] MEDS: LOSARTAN 50 MG TABLET PO SCH (08:57)
[2022-10-15] MEDS: FUROSEMIDE 20 MG TABLET PO SCH (08:57)
[2022-10-15] MEDS: carvediloL 3.125 MG TABLET PO SCH ×2 (08:57→20:45)
[2022-10-15] MEDS: CHOLECALCIFEROL 5,000 UNIT TABLET PO SCH (08:58)
[2022-10-15] MEDS: PANTOPRAZOLE 40 MG TABLET PO SCH (08:58)
[2022-10-15] MEDS: TERAZOSIN 1 MG CAPSULE PO SCH (08:58)
[2022-10-15] MEDS: POTASSIUM CHLORIDE 10 MEQ TABLET PO SCH (08:58)
[2022-10-15] MEDS: DOCUSATE SODIUM 100 MG CAPSULE PO SCH ×2 (08:58→20:45)
[2022-10-15] MEDS: diphenhydrAMINE CAP 25 MG CAPSULE PO SCH (20:44)
[2022-10-15] MEDS: ESCITALOPRAM 10 MG TABLET PO SCH (20:44)
[2022-10-15] MEDS: RIVAROXABAN 20 MG TABLET PO SCH (20:44)
[2022-10-15] MEDS: SIMVASTATIN 10 MG TABLET PO SCH (20:45)
[2022-10-15] MEDS: ZALEPLON 5 MG CAPSULE PO SCH (20:45)
[2022-10-16] MEDS: CLINDAMYCIN INJ 900 MG/50 ML PREMIX IV SCH ×3 (05:00→20:40)
[2022-10-16] MEDS: cloNIDine 0.1 MG TABLET PO PRN ×2 (07:33→20:39)
[2022-10-16] MEDS: CHOLECALCIFEROL 5,000 UNIT TABLET PO SCH (09:15)
[2022-10-16] MEDS: TERAZOSIN 1 MG CAPSULE PO SCH (09:15)
[2022-10-16] MEDS: LOSARTAN 50 MG TABLET PO SCH (09:16)
[2022-10-16] MEDS: DOCUSATE SODIUM 100 MG CAPSULE PO SCH ×2 (09:16→20:39)
[2022-10-16] MEDS: PANTOPRAZOLE 40 MG TABLET PO SCH (09:16)
[2022-10-16] MEDS: FUROSEMIDE 20 MG TABLET PO SCH (09:16)
[2022-10-16] MEDS: carvediloL 3.125 MG TABLET PO SCH ×2 (09:16→20:40)
[2022-10-16] MEDS: POTASSIUM CHLORIDE 10 MEQ TABLET PO SCH (09:16)
[2022-10-16] MEDS: cefTRIAXone 2,000 MG in SODIUM CHLORIDE 0.9% 100 ML IV SCH (09:21)
[2022-10-16] MEDS: RIVAROXABAN 20 MG TABLET PO SCH (20:39)
[2022-10-16] MEDS: diphenhydrAMINE CAP 25 MG CAPSULE PO SCH (20:39)
[2022-10-16] MEDS: MELATONIN 3 MG TABLET PO SCH (20:39)
[2022-10-16] MEDS: ESCITALOPRAM 10 MG TABLET PO SCH (20:39)
[2022-10-16] MEDS: SIMVASTATIN 10 MG TABLET PO SCH (20:39)
[2022-10-16] MEDS: ZALEPLON 5 MG CAPSULE PO SCH (20:40)
[2022-10-17] MEDS: CLINDAMYCIN INJ 900 MG/50 ML PREMIX IV SCH ×3 (05:01→20:25)
[2022-10-17] MEDS: cloNIDine 0.1 MG TABLET PO PRN (07:27)
[2022-10-17 09:02] LABS: Basophils # 0.1 10*3/uL (0.0-0.2); Basophils % 0.7 % (0.0-0.8); Eosinophils # 0.2 10*3/uL (0.0-0.87); Eosinophils % 2.7 % (0.00-10.9); Hemoglobin 12.9 GM/DL (14.0-18.0); Immature Granulocytes % 3.4 %; Immature Granulocytes Absolute 0.31 #; Lymphocytes # 0.9 10*3/uL (1.4-4.0); Lymphocytes % 10.3 % (21.2-54.2); Mean Corpuscular HGB Conc 32.3 GM/DL (32-36); Mean Corpuscular Volume 93.9 FL (87-102); Mean Platelet Volume 9.4 FL (9.6-12.0); Monocytes # 0.5 10*3/uL (0.11-0.8); Monocytes % 5.9 % (1.7-12.7); Platelet Count 225 T/CUMM (130-400); Red Blood Count 4.26 MC/CUMM (3.8-5.5); Red Cell Distribution Width 13.8 % (9.3-17.3); White Blood Count 9.1 T/CUMM (4-12)
[2022-10-17 09:10] LABS: Calcium 8.4 MG/DL (8.5-10.1); Osmolality,Calculated 276.7 MOS/KG (273-304); Potassium 4.1 MMOL/L (3.5-5.1)
[2022-10-17] MEDS: CHOLECALCIFEROL 5,000 UNIT TABLET PO SCH (09:33)
[2022-10-17] MEDS: PANTOPRAZOLE 40 MG TABLET PO SCH (09:33)
[2022-10-17] MEDS: LOSARTAN 50 MG TABLET PO SCH (09:33)
[2022-10-17] MEDS: TERAZOSIN 1 MG CAPSULE PO SCH (09:33)
[2022-10-17] MEDS: carvediloL 3.125 MG TABLET PO SCH ×2 (09:33→20:23)
[2022-10-17] MEDS: FUROSEMIDE 20 MG TABLET PO SCH (09:33)
[2022-10-17] MEDS: DOCUSATE SODIUM 100 MG CAPSULE PO SCH ×2 (09:33→20:23)
[2022-10-17] MEDS: POTASSIUM CHLORIDE 10 MEQ TABLET PO SCH (09:33)
[2022-10-17] MEDS: cefTRIAXone 2,000 MG in SODIUM CHLORIDE 0.9% 100 ML IV SCH (09:34)
[2022-10-17] MEDS: diphenhydrAMINE CAP 25 MG CAPSULE PO SCH (20:23)
[2022-10-17] MEDS: RIVAROXABAN 20 MG TABLET PO SCH (20:23)
[2022-10-17] MEDS: MELATONIN 3 MG TABLET PO SCH (20:23)
[2022-10-17] MEDS: ZALEPLON 5 MG CAPSULE PO SCH (20:24)
[2022-10-17] MEDS: SIMVASTATIN 10 MG TABLET PO SCH (20:24)
[2022-10-17] MEDS: ESCITALOPRAM 10 MG TABLET PO SCH (20:24)
[2022-10-18] MEDS: CLINDAMYCIN INJ 900 MG/50 ML PREMIX IV SCH ×2 (04:59→13:42)
[2022-10-18 05:58] LABS: Basophils # 0.1 10*3/uL (0.0-0.2); Basophils % 0.9 % (0.0-0.8); Eosinophils # 0.2 10*3/uL (0.0-0.87); Eosinophils % 2.6 % (0.00-10.9); Hematocrit 39.7 VOL% (42.0-52.0); Hemoglobin 12.9 GM/DL (14.0-18.0); Immature Granulocytes % 3.8 %; Immature Granulocytes Absolute 0.35 #; Lymphocytes # 0.9 10*3/uL (1.4-4.0); Lymphocytes % 9.2 % (21.2-54.2); Mean Corpuscular HGB Conc 32.5 GM/DL (32-36); Mean Corpuscular Volume 94.7 FL (87-102); Mean Platelet Volume 9.5 FL (9.6-12.0); Monocytes # 0.6 10*3/uL (0.11-0.8); Monocytes % 6.1 % (1.7-12.7); Neutrophils % 77.4 % (38.7-73.9); Platelet Count 228 T/CUMM (130-400); Red Blood Count 4.19 MC/CUMM (3.8-5.5); Red Cell Distribution Width 13.8 % (9.3-17.3); White Blood Count 9.3 T/CUMM (4-12)
[2022-10-18 06:10] LABS: Calcium 8.1 MG/DL (8.5-10.1); Osmolality,Calculated 280.4 MOS/KG (273-304)
[2022-10-18] MEDS: cefTRIAXone 2,000 MG in SODIUM CHLORIDE 0.9% 100 ML IV SCH (08:48)
[2022-10-18] MEDS: FUROSEMIDE 20 MG TABLET PO SCH (08:49)
[2022-10-18] MEDS: TERAZOSIN 1 MG CAPSULE PO SCH (08:49)
[2022-10-18] MEDS: POTASSIUM CHLORIDE 10 MEQ TABLET PO SCH (08:49)
[2022-10-18] MEDS: LOSARTAN 50 MG TABLET PO SCH (08:49)
[2022-10-18] MEDS: DOCUSATE SODIUM 100 MG CAPSULE PO SCH (08:49)
[2022-10-18] MEDS: PANTOPRAZOLE 40 MG TABLET PO SCH (08:49)
[2022-10-18] MEDS: carvediloL 3.125 MG TABLET PO SCH (08:49)
[2022-10-18] MEDS: CHOLECALCIFEROL 5,000 UNIT TABLET PO SCH (08:49)
[2022-10-18 12:22] VITALS: BP 127/93
== END 2022-10-18 13:15 | disposition home health service (06) | DRG 603 ==
LOC: N.ED 12:03 → N.EDINP 14:01 → N.5E 16:26
PROVIDERS: ADMIT Family Medicine; ATTEND Family Medicine